=== PATIENT | male | born 1955 | race Two or more races ===

== ENCOUNTER 2017-11-24 18:59 | Emergency (ER) | payer OTHER ==
[2017-11-24 19:15] VITALS: BP 163/56; PULSE 106; TEMP 102.5; BMI 24.2
[2017-11-24] MEDS ORDERED: SODIUM CHLORIDE 1,000 ML IV STA (20:19)
[2017-11-24] MEDS ORDERED: ACETAMINOPHEN 325 MG TABLET (FP) PO ONE (20:19)
--- NOTE | 2017-11-24 20:19 | PDOC ---
History of Present Illness - General History Source: Patient Exam Limitations: No Limitations - History of Present Illness Initial Comments: 11/24/17 20:20 The patient is a 62 year old male, with no significant past medical history, who presents to the emergency department with dysuria, increased urinary frequency, nausea, and suprapubic pain for 1 day. He reportedly took a dose of pyridium to alleviate the urinary discomfort, however, reports still having discomfort on urination. The patient reports pain to his bilateral flanks and suprapubic regions. The patient reports feeling nauseous but denies vomiting. The patient denies chest pain, shortness of breath, headache and dizziness. The patient denies fever, chills, vomit, diarrhea and constipation. The patient denies urgency and hematuria. Allergies: NKDA: PCP - Dr. Hugh Lr <Salud Cox - Last Filed: 11/24/17 22:21> - General History Source: Patient <Arsh Buchanan - Last Filed: 11/24/17 22:31> - General Chief Complaint: Urinary Problem Stated Complaint: UTI Time Seen by Provider: 11/24/17 20:11 Past History <Salud Cox - Last Filed: 11/24/17 22:21> - Past Medical History COPD: No GI Disorders: Yes (diverticulitis) HTN: Yes - Suicide/Smoking/Psychosocial Hx Smoking History: Never smoked Have you smoked in the past 12 months: No Information on smoking cessation initiated: No Hx Alcohol Use: No Drug/Substance Use Hx: No <Arsh Buchanan - Last Filed: 11/24/17 22:31> - Past Medical History Allergies/Adverse Reactions: Allergies Allergy/AdvReac Type Severity Reaction Status Date / Time No Known Allergies Allergy Verified 11/24/17 21:36 Home Medications: Ambulatory Orders Doxycycline Hyclate [Vibramycin -] 100 mg PO BID #20 cap 11/24/17 Ibuprofen [Motrin -] 600 mg PO TID #30 tablet 11/24/17 Review of Systems - Review of Systems Able to Perform ROS?: Yes Comments:: 11/24/17 20:21 CONSTITUTIONAL: Absent: fever, chills, diaphoresis, generalized weakness, malaise, loss of appetite HEENT: Absent: rhinorrhea, nasal congestion, throat pain, throat swelling, difficulty swallowing, mouth swelling, ear pain, eye pain, visual Changes CARDIOVASCULAR: Absent: chest pain, syncope, palpitations, irregular heart rate, lightheadedness , peripheral edema RESPIRATORY: Absent: cough, shortness of breath, dyspnea with exertion, orthopnea, wheezing, stridor, hemoptysis GASTROINTESTINAL: (+) suprapubic pain. nausea. Absent: abdominal distension, vomiting, diarrhea , constipation, melena, hematochezia GENITOURINARY: (+) dysuria, frequency, Absent:urgency, hesitancy, hematuria, flank pain, genital pain MUSCULOSKELETAL: Absent: myalgia, arthralgia, joint swelling SKIN: Absent: rash, itching, pallor HEMATOLOGIC/IMMUNOLOGIC: Absent: easy bleeding, easy bruising, lymphadenopathy, frequent infections ENDOCRINE: Absent: unexplained weight gain, unexplained weight loss, heat intolerance, cold intolerance NEUROLOGIC: Absent: headache, focal weakness or paresthesias, dizziness, unsteady gait, seizure, mental status changes, bladder or bowel incontinence PSYCHIATRIC: Absent: anxiety, depression, suicidal or homicidal ideation, hallucinations. <Salud Cox - Last Filed: 11/24/17 22:21> *Physical Exam - Vital Signs Last Vital Signs Temp Pulse Resp BP Pulse Ox 102.5 F H 106 H 20 163/56 99 11/24/17 19:09 11/24/17 19:09 11/24/17 19:09 11/24/17 19:09 11/24/17 19:09 - Physical Exam Comments: 11/24/17 20:21 GENERAL: (+) febrile. Well developed, well nourished. Awake and alert. No acute distress. HEENT: Normocephalic, atraumatic. PERRLA, EOMI. No conjunctival pallor. Sclera are non- icteric. Moist mucous membranes. Oropharynx is clear. NECK: Supple. Full ROM. No JVD. Carotid pulses 2+ and symmetric, without bruits. No thyromegaly. No lymphadenopathy. CARDIOVASCULAR: Regular rate and rhythm. No murmurs, rubs, or gallops. Distal pulses are 2+ and symmetric. PULMONARY: No evidence of respiratory distress. Lungs clear to auscultation bilaterally. No wheezing, rales or rhonchi. ABDOMINAL: (+) suprapubic tenderness to palpation. Soft. Non-distended. No rebound or guarding. No organomegaly. Normoactive bowel sounds. MUSCULOSKELETAL Normal range of motion at all joints. No bony deformities or tenderness. No CVA tenderness. EXTREMITIES: No cyanosis. No clubbing. No edema. No calf tenderness. SKIN: Warm and dry. Normal capillary refill. No rashes. No jaundice. NEUROLOGICAL: Alert, awake, appropriate. Cranial nerves 2-12 intact. Normoreflexic in the upper and lower extremities. Normal speech. Toes are down-going bilaterally. Gait is normal without ataxia. PSYCHIATRIC: Cooperative. Good eye contact. Appropriate mood and affect. <Salud Cox - Last Filed: 11/24/17 22:21> - Vital Signs Last Vital Signs Temp Pulse Resp BP Pulse Ox 102.5 F H 106 H 20 163/56 99 11/24/17 19:09 11/24/17 19:09 11/24/17 19:09 11/24/17 19:09 11/24/17 19:09 <Arsh Buchanan - Last Filed: 11/24/17 22:31> ED Treatment Course - LABORATORY CBC & Chemistry Diagram: 11/24/17 21:20 11/24/17 21:20 - RADIOLOGY Radiograph Interpretation: EXAM#: TYPE/EXAM: RESULT: [id number] CT/SPIRAL- RENAL-STONE CT Renal stone CT (without contrast) Clinical information: evaluate for kidney stone Multiplanar imaging was performed. No intravenous or enteric contrast was administered. No urinary tract calculus or hydroureteronephrosis is identified. In comparison to a prior CT exam of 07/02/2011 note is made of mildly increased perinephric soft tissue stranding which may be on the basis of chronic or acute inflammation. Correlate clinically. The kidneys appear unremarkable in size. No obvious contour abnormality is identified. Interval development of swelling of the prostate gland is noted with associated development of stranding within the contiguous fat planes suggestive of acute prostatitis. There is also enlargement of the seminal vesicles bilaterally with adjacent soft tissue stranding which may be on the basis of associated vesiculitis. There is also mild diffuse urinary bladder wall thickening suggestive of cystitis although a component of this appearance could be due to underdistention. There is development of soft tissue stranding within the perivesical fat planes. Colonic diverticulosis is noted without evidence of acute diverticulitis. The appendix appears unremarkable. The liver, spleen, pancreas, gallbladder, and adrenal glands demonstrate no discrete noncontrast pathology. There is no aortic aneurysm. No free intraperitoneal fluid is seen. Interval development of several mildly prominent retroperitoneal lymph nodes is noted. Impression: No CT evidence of urolithiasis or hydronephrosis. In comparison to a 2011 CT exam interval development of prostate enlargement is noted with associated contiguous soft tissue stranding consistent with edema probably on the basis of acute prostatitis. Development of swelling of the seminal vesicles is also seen bilaterally with associated contiguous soft tissue stranding suggestive of acute vesiculitis. There is also probable acute cystitis. Perirectal soft tissue stranding suggestive of inflammation/infection is also visualized which may be chronic or acute in nature. Interval development of several nonspecific mildly prominent retroperitoneal lymph nodes is noted which may be on a reactive basis. Correlate with 3 month follow-up CT or MRI to document stability/resolution Reported By: Mitchel Osborn MD 11/24/171 <Salud Cox - Last Filed: 11/24/17 22:21> - LABORATORY CBC & Chemistry Diagram: 11/24/17 21:20 11/24/17 21:20 <Arsh Buchanan - Last Filed: 11/24/17 22:31> Medical Decision Making - Medical Decision Making 11/24/17 22:30 Dr. Buchanan: The scribe's documentation has been prepared under my direction and personally reviewed by me in its entirery. I confirm that the note above accurately reflects all work, treatment, procedures, and medical decision making performed by me. Pt found to have acute cystitis on CT scan. NO involvement to kidneys. Pt to follow up with urology. <Arsh Buchanan - Last Filed: 11/24/17 22:31> *DC/Admit/Observation/Transfer - Attestations Scribe Attestion: 11/24/17 20:22 Documentation prepared by Salud Cox, acting as medical chief technician for Arsh Buchanan DO. <Salud Cox - Last Filed: 11/24/17 22:21> - Discharge Dispostion Admit: No <Arsh Buchanan - Last Filed: 11/24/17 22:31> Diagnosis at time of Disposition: Acute cystitis - Discharge Dispostion Disposition: HOME Condition at time of disposition: Stable - Prescriptions Prescriptions: Doxycycline Hyclate [Vibramycin -] 100 mg PO BID #20 cap Ibuprofen [Motrin -] 600 mg PO TID #30 tablet - Referrals Referrals: Hugh Lr MD [Primary Care Provider] - - Patient Instructions Printed Discharge Instructions: DI for Acute Cystitis Additional Instructions: Please take medication as directed. Please drink plenty of fluids. follow up with your urologist in the next two for re-evaluation. Return if any problems Print Language: BRUNEIAN - Post Discharge Activity
[2017-11-24] MEDS ORDERED: KETOROLAC TROMETHAMINE 30 MG/1 ML VIAL IVPUSH ONE (20:24)
[2017-11-24 20:47] LABS: URINE APPEARANCE CLOUDY; URINE BILIRUBIN NEGATIVE (NEGATIVE); URINE BLOOD 1+ (NEGATIVE); URINE COLOR AMBER; URINE GLUCOSE (UA) 1+ (NEGATIVE); URINE KETONE TRACE (NEGATIVE); URINE NITRITE POSITIVE (NEGATIVE); URINE UROBILINOGEN 4.0 E.U/dl mg/dL (0.2-1.0)
[2017-11-24 20:48] LABS: URINE LEUK ESTERASE 2+ (NEGATIVE); URINE PROTEIN 2+ (NEGATIVE)
[2017-11-24 20:50] LABS: EPI CELLS RARE /HPF (FEW)
[2017-11-24] MEDS ORDERED: CEFTRIAXONE 1 GM/50 ML BAG ONE (21:04)
[2017-11-24 21:31] LABS: BASO % 0.1 % (0-2.0); HEMATOCRIT 30.5 % (35.4-49); HEMOGLOBIN 9.8 GM/dL (11.7-16.9); LYMPH % 6.4 % (8-40); MCH 22.7 pg (25.7-33.7); MCHC 32.1 g/dl (32.0-35.9); MEAN CELL VOLUME 70.7 fl (80-96); MEAN PLT VOLUME 6.8 fl (7.5-11.1); NEUT % 91.5 % (42.8-82.8); PLATELET COUNT 341 K/MM3 (134-434); RBC 4.32 M/mm3 (4.00-5.60); RDW 18.3 % (11.9-15.9); WHITE BLOOD COUNT 9.2 K/mm3 (4.0-10.0)
[2017-11-24 21:45] LABS: INR 1.27 (0.82-1.09); PROTHROMBIN TIME (PATIENT) 14.4 SEC (9.98-11.88)
[2017-11-24 22:08] LABS: ALBUMIN 3.3 g/dl (3.4-5.0); ANION GAP 11 (8-16); BLOOD UREA NITROGEN 11 mg/dL (7-18); CHLORIDE 90 mmol/L (98-107); CO2 26 mmol/L (21-32); CREATININE 1.3 mg/dL (0.7-1.3); GLUCOSE,RANDOM 140 mg/dL (74-106); SGOT/AST 12 U/L (15-37); SGPT/ALT 12 U/L (12-78); SODIUM 127 mmol/L (136-145); TOT PROT 7.4 g/dl (6.4-8.2)
[2017-11-24 22:09] LABS: ALK PHOS 68 U/L (45-117)
[2017-11-24] MEDS ORDERED: POTASSIUM CHLORIDE TABS 20 MEQ TABLET.ER (FP) PO ONE ×2 (22:10→22:59)
[2017-11-24] MEDS ORDERED: DOXYCYCLINE HYCLATE 100 MG CAPSULE PO ONE ×2 (22:22→22:59)
--- NOTE | 2017-11-25 10:33 | PDOC ---
Patient Follow-up (Call Back) - Post ED Follow - Up Condition at time of discharge: Stable Disposition at time of original discharge: HOME Reason for Call Back: Abnwl. Microbiology (Patient with positive blood culture I have called patient to return to ER daughter states the patient is still febrile and vomiting. I have explained to daughter the patient will need to return immediately to emergency department for further evaluation, she verbalized understanding and will bring him now.)
== END 2017-11-25 00:33 | disposition home or self-care (01) ==
LOC: JER 18:59
PROC: 3E03329 Introduction of Other Anti-infective into Peripheral Vein, Percutaneous Approach (ICD-10-PCS; principal; 2017-11-24)
PROC: 3E0333Z Introduction of Anti-inflammatory into Peripheral Vein, Percutaneous Approach (ICD-10-PCS; 2017-11-24)
DX: N30.00 Acute cystitis without hematuria (principal); R78.81 Bacteremia
CPT/HCPCS: 36415; 74176; 80053; 81003; 81015; 85025; 85610; 87040; 87086; 87186; 99282-25

== ENCOUNTER 2017-11-25 11:12 | Inpatient (IN) | payer OTHER ==
[2017-11-25] MEDS ORDERED: SODIUM CHLORIDE 0.9% 1000 ML INFUS.BAG IV STA (11:48)
[2017-11-25] MEDS ORDERED: PIPERACIL/TAZOB 3.375 GM 3.375 GM/50 ML PREMIX IVPB ONE (11:56)
--- NOTE | 2017-11-25 11:56 | PDOC ---
History of Present Illness - General History Source: Patient, Family Exam Limitations: No Limitations - History of Present Illness Initial Comments: 11/25/17 12:05 The patient is a 62 year old male, with a significant past medical history of hypertension, who presents to the emergency department for evaluation of UTI. The patient states he was seen in [place] ED yesterday for complaints of dysuria, increased urinary frequency with driplets, nausea, and suprapubic pain and reports back to the ED this morning s/p a positive blood culture report. The patient reports a recent subjective fever, 3 episodes of emesis (non bloody , non bilious), dizziness, dysuria and increased urinary frequency with driplets. The patient reports his suprapubic pain has improved since yesterday and he is now able to urinate more than he was able to yesterday. He denies any recent chills or headache. He denies any recent, diarrhea or constipation. He denies any recent chest pain or shortness of breath. He denies any recent hematuria. Allergies: NKA Primary Care Physician: Dr. Elliott <Jesus Teixeira - Last Filed: 11/25/17 14:31> <Arina Daigle - Last Filed: 11/25/17 15:18> - General Chief Complaint: Revisit, Lab Variance Stated Complaint: LAB VARIANCE Time Seen by Provider: 11/25/17 11:47 Past History <Jesus Teixeira - Last Filed: 11/25/17 14:31> - Past Medical History COPD: No GI Disorders: Yes (diverticulitis) HTN: Yes - Suicide/Smoking/Psychosocial Hx Smoking History: Never smoked Have you smoked in the past 12 months: No Hx Alcohol Use: No Drug/Substance Use Hx: No <Arina Daigle - Last Filed: 11/25/17 15:18> - Past Medical History Allergies/Adverse Reactions: Allergies Allergy/AdvReac Type Severity Reaction Status Date / Time No Known Allergies Allergy Verified 11/25/17 11:18 Home Medications: Ambulatory Orders Doxycycline Hyclate [Vibramycin -] 100 mg PO BID #20 cap 11/24/17 Ibuprofen [Motrin -] 600 mg PO TID #30 tablet 11/24/17 Review of Systems - Review of Systems Comments:: 11/25/17 12:26 GENERAL/CONSTITUTIONAL: +Fever. No chills. No weakness. HEAD, EYES, EARS, NOSE AND THROAT: No change in vision. No ear pain or discharge. No sore throat. CARDIOVASCULAR: No chest pain or shortness of breath. RESPIRATORY: No cough, wheezing, or hemoptysis. GASTROINTESTINAL: +Suprapubic pain. +Nausea. +Vomiting. No diarrhea or constipation. GENITOURINARY: +Dysuria. +Frequency. No hematuria. MUSCULOSKELETAL: No joint or muscle swelling or pain. No neck or back pain. SKIN: No rash NEUROLOGIC: +Dizziness. No headache, loss of consciousness, or change in strength/sensation. ENDOCRINE: No increased thirst. No abnormal weight change. HEMATOLOGIC/LYMPHATIC: No anemia, easy bleeding, or history of blood clots. ALLERGIC/IMMUNOLOGIC: No hives or skin allergy. <Jesus Teixeira - Last Filed: 11/25/17 14:31> *Physical Exam - Vital Signs Last Vital Signs Temp Pulse Resp BP Pulse Ox 98 F 87 19 104/61 100 11/25/17 11:18 11/25/17 11:18 11/25/17 11:18 11/25/17 11:18 11/25/17 11:18 - Physical Exam Comments: 11/25/17 12:47 GENERAL: Awake, alert, and fully oriented, in no acute distress HEAD: No signs of trauma EYES: PERRLA, EOMI, sclera anicteric, conjunctiva clear ENT: Auricles normal inspection, hearing grossly normal, nares patent, oropharynx clear without exudates. Moist mucosa NECK: Normal ROM, supple, no lymphadenopathy, JVD, or masses LUNGS: Breath sounds equal, clear to auscultation bilaterally. No wheezes, and no crackles HEART: Regular rate and rhythm, normal S1 and S2, no murmurs, rubs or gallops ABDOMEN: Soft, nontender, normoactive bowel sounds. No guarding, no rebound. No masses EXTREMITIES: Normal range of motion, no edema. No clubbing or cyanosis. No cords, erythema, or tenderness NEUROLOGICAL: Cranial nerves II through XII grossly intact. Normal speech, normal gait SKIN: Warm, Dry, normal turgor, no rashes or lesions noted <Jesus Teixeira - Last Filed: 11/25/17 14:31> - Vital Signs Last Vital Signs Temp Pulse Resp BP Pulse Ox 98 F 87 19 104/61 100 11/25/17 11:18 11/25/17 11:18 11/25/17 11:18 11/25/17 11:18 11/25/17 11:18 <Arina Daigle - Last Filed: 11/25/17 15:18> ED Treatment Course - LABORATORY CBC & Chemistry Diagram: 11/25/17 12:30 11/25/17 12:30 <Jesus Teixeira - Last Filed: 11/25/17 14:31> - LABORATORY CBC & Chemistry Diagram: 11/25/17 12:30 11/25/17 12:30 <Arina Daigle - Last Filed: 11/25/17 15:18> Medical Decision Making - Medical Decision Making 11/25/17 13:[address] Brooks at 1:30 pm. Pending call back. Second page sent to Dr. Brooks at 2:20 pm. Pending call back. <Jesus Teixeira - Last Filed: 11/25/17 14:31> - Medical Decision Making 11/25/17 13:24 Pt presents to the ED after recalled for gram negative rods in his blood cultures. Seen in the ED yesterday, had prostatitis and cystitis on CT, discharged home with doxycycline. Today, has continued vomiting and fever and dysuria, but is otherwise asymptomatic. Will start zosyn and Iv hydration and admit to medicine for sepsis. 11/25/17 13:55 Lactate is 6.6. Case discussed with ICU attending, who states that as long as patient is hemodyamically stable and lactate is clearing, patient can be admitted to floor. I went to reassess the patient and found his blood pressure to be 70/50. Patient is mentating and at this point has no complaints except for mild lightheadness. At this point, the patient has only recieved 500 cc IVF. Placed a second IV line, started another liter of NS, and will reassess patient. Repeat BP 87/50 after second line placed. Will upgrade to ICU if BP does not improve or if lactate is not clearing. 11/25/17 15:[address] Pitts, who has come to the ED to evaluate the patient. The patient's blood pressure has improved to 130/60 and the patient contines to mentate well with minimal complaints. Dr. Pitts feels that since the blood pressure is improving, the patient can be safely monitored on telemetry. Will continue IV hydration and admit to Telemetry. <Arina Daigle - Last Filed: 11/25/17 15:18> *DC/Admit/Observation/Transfer - Attestations Scribe Attestion: 11/25/17 12:58 Documentation prepared by Jesus Teixeira, acting as ophthalmic medical technician for Arina Daigle MD. <Jesus Teixeira - Last Filed: 11/25/17 14:31> - Discharge Dispostion Admit: Yes <Arina Daigle - Last Filed: 11/25/17 15:18> Diagnosis at time of Disposition: Prostatitis Qualifiers: Prostatitis type: acute Qualified Code(s): N41.0 - Acute prostatitis Sepsis Qualifiers: Sepsis type: sepsis due to unspecified organism Qualified Code(s): A41.9 - Sepsis, unspecified organism - Discharge Dispostion Condition at time of disposition: Good
[2017-11-25 12:47] LABS: VENOUS PC02 52.5 mmHg (38-52); VENOUS PH 7.29 (7.32-7.42)
[2017-11-25 12:48] LABS: VENOUS PO2 25.8 mmHg (28-48)
[2017-11-25 12:59] LABS: BASO % 0.1 % (0-2.0); EOS % 0.2 % (0-4.5); HEMATOCRIT 30.1 % (35.4-49); HEMOGLOBIN 9.4 GM/dL (11.7-16.9); LYMPH % 3.4 % (8-40); MCH 22.3 pg (25.7-33.7); MCHC 31.1 g/dl (32.0-35.9); MEAN CELL VOLUME 71.8 fl (80-96); MEAN PLT VOLUME 7.2 fl (7.5-11.1); MONO % 4.9 % (3.8-10.2); NEUT % 91.4 % (42.8-82.8); PLATELET COUNT 285 K/MM3 (134-434); RBC 4.19 M/mm3 (4.00-5.60); RDW 18.6 % (11.9-15.9); WHITE BLOOD COUNT 19.6 K/mm3 (4.0-10.0)
[2017-11-25 13:11] LABS: INR 1.43 (0.82-1.09); PROTHROMBIN TIME (PATIENT) 16.2 SEC (9.98-11.88)
[2017-11-25 13:12] LABS: ANION GAP 13 (8-16); BILIRUBIN,TOTAL 0.6 mg/dL (0.2-1.0); BLOOD UREA NITROGEN 19 mg/dL (7-18); CALCIUM 7.6 mg/dL (8.5-10.1); CHLORIDE 90 mmol/L (98-107); CO2 25 mmol/L (21-32); CREATININE 1.6 mg/dL (0.7-1.3); GLUCOSE,RANDOM 138 mg/dL (74-106); POTASSIUM 3.6 mmol/L (3.5-5.1); SGOT/AST 16 U/L (15-37); SGPT/ALT 12 U/L (12-78); SODIUM 128 mmol/L (136-145); TOT PROT 6.9 g/dl (6.4-8.2)
[2017-11-25 13:13] LABS: ACTIVATED PTT 29.8 SECONDS (26.9-34.4)
[2017-11-25 13:14] LABS: ALK PHOS 65 U/L (45-117)
[2017-11-25] MEDS ORDERED: PIPERACILLIN/TAZOB 3.375 GM 3.375 GM/50 ML BAG IVPB ONE (13:33)
[2017-11-25] MEDS ORDERED: SODIUM CHLORIDE 1,000 ML IV STA (13:42)
[2017-11-25] MEDS ORDERED: PIPERACILLIN/TAZOB 3.375 GM 3.375 GM in DEXTROSE 5%-WATER - 50 ML IVPB ONE (13:45)
[2017-11-25] MEDS ORDERED: TAZOB IVPB ONE (13:45)
[2017-11-25] MEDS ORDERED: PIPERACILLIN IVPB ONE (13:45)
--- NOTE | 2017-11-25 14:27 | PN ---
Progress Note (short form) - Note Progress Note: ID Consult dictated Gram Negative Sepsis/ septic shock secondary to source Pending c/s empiric meropenem
[2017-11-25] MEDS ORDERED: MEROPENEM 1 GM in DEXTROSE 5%-WATER - 100 ML IVPB SCH (14:30)
[2017-11-25] MEDS: MEROPENEM 1 GM PUSH 1 GM/20 ML DISP.SYRIN IVPUSH SCH ×2 (15:00→20:27)
--- NOTE | 2017-11-25 15:09 | CONSULT ---
Consultation: REQUESTING PROVIDER: ED physician CONSULT REQUEST: We have been asked to medically evaluate whether patient needs ICU monitoring due to septic shock. HISTORY OF PRESENT ILLNESS: Patient is a 62 [id number] came in to [facility] ED yesterday (11/24/2017) for dysuria, was given Doxycyline 100mg PO BID and sent home. Today, he was called back to [facility] ED for a positive blood culture that was done yesterday. As per the patient, he was apparently well until 3 days back, until he had B/L flank pain, dysuria, increased frequency of urination. No hematuria, no urinary incontinence. No h/o UTI in the past or kidney stones in the past. Denies fever , chills, rigors, sweating, chest pain, sob, palpitation, abdominal pain, nausea or vomiting. Bowel bladder habit normal. Last bowel movement was today. Sleep/Appetite disturbed since illness. Past Medical History: Hypertension, Asthma, Iron def anemia Allergies: NKDA Medication: Montelukast, Atenolol/Chlorthalidone 50-25 mg, Losartan 50mg, Ferrous sulphate (but pt is not taking it), Ranitidine, Senna REVIEW OF SYSTEMS: CONSTITUTIONAL: Present: fever, Absent: chills, diaphoresis, generalized weakness, malaise, loss of appetite, weight change HEENT: Absent: rhinorrhea, nasal congestion, throat pain, throat swelling, difficulty swallowing, mouth swelling, ear pain, eye pain, visual changes CARDIOVASCULAR: Absent: chest pain, syncope, palpitations, irregular heart rate, lightheadedness , peripheral edema RESPIRATORY: Absent: cough, shortness of breath, dyspnea with exertion, orthopnea, wheezing, stridor, hemoptysis GASTROINTESTINAL: Absent: abdominal pain, abdominal distension, nausea, vomiting, diarrhea, constipation, melena, hematochezia GENITOURINARY: Present: dysuria, frequency, urgency, hesitancy,flank pain Absent: hematuria, genital pain MUSCULOSKELETAL: Absent: myalgia, arthralgia, joint swelling, back pain, neck pain SKIN: Absent: rash, itching, pallor HEMATOLOGIC/IMMUNOLOGIC: Absent: easy bleeding, easy bruising, lymphadenopathy, frequent infections ENDOCRINE: Absent: unexplained weight gain, unexplained weight loss, heat intolerance, cold intolerance NEUROLOGIC: Absent: headache, focal weakness or paresthesias, dizziness, unsteady gait, seizure, mental status changes, bladder or bowel incontinence PSYCHIATRIC: Absent: anxiety, depression, suicidal or homicidal ideation, hallucinations. PHYSICAL EXAMINATION Vital Signs - 24 hr 11/25/17 11:18 Temperature 98 F Pulse Rate 87 Respiratory 19 Rate Blood Pressure 104/61 O2 Sat by Pulse 100 Oximetry (%) GENERAL: Patient is sitting comfortably in a bed, Awake, alert, and fully oriented, in no acute distress. HEAD: Normal with no signs of trauma. EYES: Pupils equal, round and reactive to light, extraocular movements intact, sclera anicteric, conjunctiva clear. No lid lag. EARS, NOSE, THROAT: Ears normal, nares patent, oropharynx clear without exudates. Moist mucous membranes. NECK: Normal range of motion, supple without lymphadenopathy, JVD, or masses. LUNGS: Breath sounds equal, clear to auscultation bilaterally. No wheezes, and no crackles. No accessory muscle use. HEART: Regular rate and rhythm, normal S1 and S2 without murmur, rub or gallop. ABDOMEN: Soft, tenderness of suprapubic area, not distended, normoactive bowel sounds, no guarding, no rebound, no masses. No hepatomegaly or splenomegaly. MUSCULOSKELETAL: Normal range of motion at all joints. No bony deformities or tenderness. No CVA tenderness. UPPER EXTREMITIES: 2+ pulses, warm, well-perfused. No cyanosis. No clubbing. Cap refill <2 seconds. No peripheral edema. LOWER EXTREMITIES: 2+ pulses, warm, well-perfused. No calf tenderness. No peripheral edema. NEUROLOGICAL: No facial droop, Normal speech. Normal gait. PSYCHIATRIC: Cooperative. Good eye contact. Appropriate mood and affect. SKIN: Warm, dry, normal turgor, no rashes or lesions noted. Laboratory Results - last 24 hr 11/25/17 11/25/17 11/25/17 12:30 12:30 12:30 WBC 19.6 H D RBC 4.19 Hgb 9.4 L Hct 30.1 L MCV 71.8 L MCH 22.3 L MCHC 31.1 L RDW 18.6 H Plt Count 285 MPV 7.2 L Neutrophils % 91.4 H Lymphocytes % 3.4 L D Monocytes % 4.9 D Eosinophils % 0.2 D Basophils % 0.1 PT with INR 16.20 H INR 1.43 H PTT (Actin FS) 29.8 VBG pH 7.29 L POC VBG pCO2 52.5 H POC VBG pO2 25.8 L Mixed VBG HCO3 24.6 Sodium Potassium Chloride Carbon Dioxide Anion Gap BUN Creatinine Creat Clearance w eGFR Random Glucose Lactic Acid Calcium Total Bilirubin AST ALT Alkaline Phosphatase Creatine Kinase Troponin I Total Protein Albumin Blood Type Antibody Screen 11/25/17 11/25/17 11/25/17 12:30 12:30 12:30 WBC RBC Hgb Hct MCV MCH MCHC RDW Plt Count MPV Neutrophils % Lymphocytes % Monocytes % Eosinophils % Basophils % PT with INR INR PTT (Actin FS) VBG pH POC VBG pCO2 POC VBG pO2 Mixed VBG HCO3 Sodium 128 L Potassium 3.6 Chloride 90 L Carbon Dioxide 25 Anion Gap 13 BUN 19 H D Creatinine 1.6 H D Creat Clearance w eGFR 44.02 Random Glucose 138 H Lactic Acid 6.6 H* Calcium 7.6 L Total Bilirubin 0.6 D AST 16 D ALT 12 Alkaline Phosphatase 65 Creatine Kinase 149 Troponin I < 0.02 Total Protein 6.9 Albumin 3.0 L Blood Type O POSITIVE Antibody Screen Negative Active Medications Generic Name Dose Route Start Last Admin Trade Name Freq PRN Reason Stop Dose Admin Meropenem 1 gm in 20 mls @ 240 mls/hr 11/25/17 15:00 Merrem (Restricted To Id) - IVPUSH Q8H-IV BROOKE ASSESSMENT/PLAN: Patient is a 62 [id number] came in to [facility] ED yesterday (11/24/2017) for dysuria, was given Doxycyline 100mg PO BID and sent home, was called back for positive blood culture, was found to have bacteremia secondary to UTI/ Prostatitis. # Early sepsis likely secondary to bacteremia due to UTI/Prostatis qSofa score 0, blood pressure improved after 3 L of IV fluids, 4th bag running At this time, patient's BP improved after IV hydration, hemodynamically stable, no indication for ICU admission IV NS @ 150mls.hr ID consult was placed-IV Meropenam started Vitals Q4H Admit to Tele, continuous cardiac monitoring Would recommend : repeat imaging in few days if clinical condition doesn't improve to r/o abscess. Please call for any change in clinical condition or questions. # Hypertension Hold home meds. # Asthma-not in exacerbation Case discussed with Dr. Rush and KARLI Cortez. Visit type - Emergency Visit Emergency Visit: Yes ED Registration Date: 11/25/17 Care time: The patient presented to the Emergency Department on the above date and was hospitalized for further evaluation of their emergent condition. - New Patient This patient is new to me today: Yes Date on this admission: 11/25/17 - Critical Care Critical Care patient: No
[2017-11-25] MEDS ORDERED: SODIUM CHLORIDE 1,000 ML IV SCH (15:15)
--- NOTE | 2017-11-25 15:47 | CONS ---
INFECTIOUS DISEASE CONSULTATION DATE OF CONSULTATION: 11/25/2017 REASON FOR CONSULTATION: The patient is a 62-year-old male who is evaluated for septic shock. HISTORY OF PRESENT ILLNESS: He had developed symptoms of urinary tract infection including dysuria, urinary frequency, urgency, nausea, and suprapubic pain. According to the notes, he took Pyridium without improvement in his symptoms. He was seen by his primary care provider and was prescribed an antibiotic. He was unable to obtain the antibiotic. Symptoms worsened, prompting him to report to the emergency room on November 24, 2017. He was evaluated and discharged home. Lab now reports positive blood cultures for gram-negative rods. The patient continues to complain of dysuria, urinary frequency, and urgency; lower abdominal pain. In the emergency room, his temperature was 102.5 and white blood cell count 19.6. Lactic acid level 6.6. His course has been complicated by hypotension. In the emergency room, his blood pressure dropped to 70/50, and he was given IV fluids with improvement in his blood pressure. Patient states he has been followed by urologist in the past for an elevated PSA. He had a prostate biopsy 2 years ago, which he reports was normal. No recent manipulation. PAST MEDICAL HISTORY: As above. ALLERGIES: No known allergies. SOCIAL HISTORY: Resides at home with his significant other. No tobacco or alcohol use history. SYSTEMS REVIEW: Neurologic: No loss of consciousness, seizure activity, or focal weakness. Cardiac: Negative chest pain or palpitations. Respiratory: Negative cough or sputum production. Gastrointestinal: Positive for nausea. No vomiting or diarrhea. Genitourinary: As per HPI. LABORATORY DATA: White count 19.6, hematocrit 30.1, platelet count 285. BUN 13, creatinine 1.6. Liver enzymes normal. Urinalysis: White cells 1194. Lactic acid 6.6. CAT scan of the abdomen and pelvis performed November 24, shows prostate enlargement with contiguous soft tissue stranding consistent with edema, likely on the basis of acute prostatitis; swelling of the seminal vesicles bilaterally with contiguous soft tissue stranding. There was perinephric stranding as well as diffuse urinary bladder wall thickening suggestive of cystitis. PHYSICAL EXAMINATION: General: He is ill appearing. He is lying supine on the stretcher in the emergency room. He appears weak. He is in no acute respiratory distress. Vital Signs: Temperature 102.5; blood pressure 104/61; pulse 87, regular; respirations 20 per minute. HEENT: Sclerae are anicteric. Heart: Sounds S1, S2. Lungs: Clear. Abdomen: Distended, tympanitic. Positive suprapubic tenderness. No mass, rebound, or rigidity. Extremities: Negative for edema. IMPRESSION: 1. Gram-negative bacteremia/sepsis secondary to genitourinary focus. 2. Urinary tract infection. 3. Acute prostatitis. 4. Possible acute pyelonephritis. 5. Lactic acidosis. Clinical presentation consistent with septic shock secondary to gram-negative sepsis from urinary tract infection. Continue IV fluid resuscitation, broad-spectrum antibiotic coverage for gram-negative urinary tract pathogens including possible ESBL with meropenem 1 g IV piggyback every 8 hours. Further recommendations pending cultures. Case discussed with patient's present at the time of the examination. Thank you for the kind referral. SATHISH QUINTERO M.D. [id number]
--- NOTE | 2017-11-25 15:54 | HP ---
CHIEF COMPLAINT: Abdominal pain, vomiting, chills PCP: Jean Elliott HISTORY OF PRESENT ILLNESS: This is a 62 year old male with PMHx of HTN who presented to the ED with abdominal pain, vomiting, chills, and dysuria. The patient reports that on Wednesday 11/22 he began to have dysuria. He states he went to his PMD yesterday and was told an Rx for abx was sent to pharmacy. The patient was unable to pick it up from the pharmacy and came to [facility] ED. The patient had a fever and was diagnosed with prostatitis and acute cystitis and dishcarged on Doxycycline. The patient was then called back to the ED today because blood cultures from yesterday were positive. He reports increased lower abdominal pain today. He reports still with dysuria and urgency, with hesitancy. The patient states he had one episode of non-bloody emesis this AM. He denies any chest pain, palpitations, headache, dizziness, syncope, diarrhea, shortness of breath. The patient also denies any hematuria. ER course was notable for: (1) WBC 19.6 (2) Lactic acid 6.6->3.4 after 3L NS (3) Cr 1.6 (4) Hypotension, 76/57->113/73 after 4L fluid Recent Travel: denies PAST MEDICAL HISTORY: HTN PAST SURGICAL HISTORY: denies Social History: Smoking: denies Alcohol: denies Drugs: denies Family History: Allergies No Known Allergies Allergy (Verified 11/25/17 11:18) HOME MEDICATIONS: Home Medications Medication Instructions Recorded Doxycycline Hyclate [Vibramycin -] 100 mg PO BID #20 cap 11/24/17 Ibuprofen [Motrin -] 600 mg PO TID #30 tablet 11/24/17 REVIEW OF SYSTEMS CONSTITUTIONAL: fever, chill since this AM. Diaphoresis yesterday. Absent: generalized weakness, malaise, loss of appetite, weight change HEENT: Absent: rhinorrhea, nasal congestion, throat pain, throat swelling, difficulty swallowing, mouth swelling, ear pain, eye pain, visual changes CARDIOVASCULAR: Absent: chest pain, syncope, palpitations, irregular heart rate , lightheadedness, peripheral edema RESPIRATORY: Absent: cough, shortness of breath, dyspnea with exertion, orthopnea, wheezing, stridor, hemoptysis GASTROINTESTINAL: One episode of vomiting this AM. Absent: abdominal pain, abdominal distension, diarrhea, constipation, melena, hematochezia GENITOURINARY: Dysuria, urgency, frequency that began on Wednesday. Absent: hematuria, flank pain, genital pain MUSCULOSKELETAL: Absent: myalgia, arthralgia, joint swelling, back pain, neck pain SKIN: Absent: rash, itching, pallor HEMATOLOGIC/IMMUNOLOGIC: Absent: easy bleeding, easy bruising, lymphadenopathy, frequent infections ENDOCRINE:Absent: unexplained weight gain, unexplained weight loss, heat intolerance, cold intolerance NEUROLOGIC: Absent: headache, focal weakness or paresthesias, dizziness, unsteady gait, seizure, mental status changes, bladder or bowel incontinence PSYCHIATRIC: Absent: anxiety, depression, suicidal or homicidal ideation, hallucinations. PHYSICAL EXAMINATION Vital Signs - 24 hr 11/25/17 11:18 Temperature 98 F Pulse Rate 87 Respiratory 19 Rate Blood Pressure 104/61 O2 Sat by Pulse 100 Oximetry (%) GENERAL: Awake, alert, and fully oriented, in no acute distress. HEAD: Normal with no signs of trauma. EYES: Pupils equal, round and reactive to light, extraocular movements intact, sclera anicteric, conjunctiva clear. No lid lag. EARS, NOSE, THROAT: Ears normal, nares patent, oropharynx clear without exudates. Moist mucous membranes. NECK: Normal range of motion, supple without lymphadenopathy, JVD, or masses. LUNGS: Breath sounds equal, clear to auscultation bilaterally. No wheezes, and no crackles. No accessory muscle use. HEART: Regular rate and rhythm, normal S1 and S2 without murmur, rub or gallop. ABDOMEN: Mildly distended. Diffuse lower abdominal tenderness. Soft, normoactive bowel sounds, no guarding, no rebound, no masses. MUSCULOSKELETAL: Normal range of motion at all joints. No bony deformities or tenderness. No CVA tenderness. UPPER EXTREMITIES: 2+ pulses, warm, well-perfused. No cyanosis. No clubbing. No peripheral edema. LOWER EXTREMITIES: 2+ pulses, warm, well-perfused. No calf tenderness. No peripheral edema. NEUROLOGICAL: Cranial nerves II-XII intact. Normal speech. Gait not observed PSYCHIATRIC: Cooperative. Good eye contact. Appropriate mood and affect. SKIN: Warm, dry, normal turgor, no rashes or lesions noted, normal capillary refill. Laboratory Results - last 24 hr 11/25/17 11/25/1711/25/18 12:30 12:30 12:30 WBC 19.6 H D RBC 4.19 Hgb 9.4 L Hct 30.1 L MCV 71.8 L MCH 22.3 L MCHC 31.1 L RDW 18.6 H Plt Count 285 MPV 7.2 L Neutrophils % 91.4 H Lymphocytes % 3.4 L D Monocytes % 4.9 D Eosinophils % 0.2 D Basophils % 0.1 PT with INR 16.20 H INR 1.43 H PTT (Actin FS) 29.8 VBG pH 7.29 L POC VBG pCO2 52.5 H POC VBG pO2 25.8 L Mixed VBG HCO3 24.6 Sodium Potassium Chloride Carbon Dioxide Anion Gap BUN Creatinine Creat Clearance w eGFR Random Glucose Lactic Acid Calcium Total Bilirubin AST ALT Alkaline Phosphatase Creatine Kinase Troponin I Total Protein Albumin Blood Type Antibody Screen 11/25/17 11/25/17 11/25/17 12:30 12:30 12:30 WBC RBC Hgb Hct MCV MCH MCHC RDW Plt Count MPV Neutrophils % Lymphocytes % Monocytes % Eosinophils % Basophils % PT with INR INR PTT (Actin FS) VBG pH POC VBG pCO2 POC VBG pO2 Mixed VBG HCO3 Sodium 128 L Potassium 3.6 Chloride 90 L Carbon Dioxide 25 Anion Gap 13 BUN 19 H D Creatinine 1.6 H D Creat Clearance w eGFR 44.02 Random Glucose 138 H Lactic Acid 6.6 H* Calcium 7.6 L Total Bilirubin 0.6 D AST 16 D ALT 12 Alkaline Phosphatase 65 Creatine Kinase 149 Troponin I < 0.02 Total Protein 6.9 Albumin 3.0 L Blood Type O POSITIVE Antibody Screen Negative 11/25/17 14:35 WBC RBC Hgb Hct MCV MCH MCHC RDW Plt Count MPV Neutrophils % Lymphocytes % Monocytes % Eosinophils % Basophils % PT with INR INR PTT (Actin FS) VBG pH POC VBG pCO2 POC VBG pO2 Mixed VBG HCO3 Sodium Potassium Chloride Carbon Dioxide Anion Gap BUN Creatinine Creat Clearance w eGFR Random Glucose Lactic Acid 3.4 H* Calcium Total Bilirubin AST ALT Alkaline Phosphatase Creatine Kinase Troponin I Total Protein Albumin Blood Type Antibody Screen Assessment: This is a 62 year old male with PMHx of HTN who presented to the ED with abdominal pain, vomiting, chills, and dysuria. Plan: 1) Severe sepsis 2/2 gram negative bacteremia - Likely from source - WBC 19.6 - Hypotension responded to IV fluids: 73/57->113/73 after 4L NS - Continue IV fluids - Lactic acidosis, continue to trend - Continue empiric Meropenem - Follow blood cultures - Appreciate ID consult - Appreciate critical care consult 2) Acute urinary retention - Bladder scan with 791cc - Insert dodson catheter 3) NELY - F/u kidney bladder ultrasound - Bladder scan at bedside with 600cc residual. Dodson catheter placed with 450cc output - Continue to trend 4) Hyponatremia - F/u repeat BMP to trend sodium level - F/u nephrology consult 2) Hx of HTN - Hold all anti-hypertensives 2/2 severe hypotension 3) F/E/N: - Regular diet - Monitor electrolytes 4) Prophylaxis: - OOB ambulating - Heparin 5,000u sq tid 5) Dispo: - Requires continued inpatient care CODE STATUS: FULL CODE Visit type - Emergency Visit Emergency Visit: Yes ED Registration Date: 11/25/17 Care time: The patient presented to the Emergency Department on the above date and was hospitalized for further evaluation of their emergent condition. - New Patient This patient is new to me today: Yes Date on this admission: 11/29/17 - Critical Care Critical Care patient: No Hospitalist Screening - Colonoscopy Questionnaire Colonoscopy Questionnaire: Colonoscopy Questionnaire - Patient: 50 - 75 years old and never had a screening colonoscopy: Unknown History of colon or rectal polyps, or CA: Unknown History of IBD, Crohn's disease or UC: Unknown History of abdominal radiation therapy as a child: Unknown - Relative: 1 with colon or rectal CA, or polyps at age 60 or younger: Unknown Colon or rectal CA diagnosed at age 45 or younger: Unknown Multiple relatives with colon or rectal CA: Unknown - Outcome: Screening Result: Negative Screen
[2017-11-25] MEDS ORDERED: HEPARIN NA (PORCINE) 5,000 UNITS/ML 1ML VIAL IVPUSH PRN ×2 (17:17)
[2017-11-25] MEDS ORDERED: HEPARIN - 25,000 UNIT in SODIUM CHLORIDE 495 ML IV SCH (17:30)
[2017-11-25 19:26] LABS: URINE APPEARANCE CLEAR; URINE BILIRUBIN NEGATIVE (NEGATIVE); URINE BLOOD 2+ (NEGATIVE); URINE COLOR AMBER; URINE GLUCOSE (UA) NEGATIVE (NEGATIVE); URINE KETONE NEGATIVE (NEGATIVE); URINE NITRITE POSITIVE (NEGATIVE); URINE PROTEIN NEGATIVE (NEGATIVE); URINE UROBILINOGEN NEGATIVE mg/dL (0.2-1.0)
[2017-11-25 19:27] LABS: URINE LEUK ESTERASE 2+ (NEGATIVE)
[2017-11-25 19:28] LABS: URINE MUCUS RARE
--- NOTE | 2017-11-25 19:38 | PN ---
Progress Note (short form) - Note Progress Note: ICU Evening team re-evaluating patient Patient seen at bedside remains hemodynamically stable AAOx3 Patient diuresing well after 4 liters IVF but bladder scan showed 500ml post void residual Lorenzana catheter inserted and 450ml of urine drained Patient feels well no complaints Vital signs during evaluation: Laying Down-129/76 HR 96 RR 24 Sat 98% on room air Standing up BP 141/74 HR 100 RRR S1 S2 CTAB ABD soft non tender slightly distended no edema global muscle strength 5/5 normal gait patient does not meet criteria for ICU care patient still ok to go to telemetry for monitoring Thank you for this consultative opportunity
[2017-11-25 22:02] LABS: ANION GAP 7 (8-16); BLOOD UREA NITROGEN 16 mg/dL (7-18); CHLORIDE 105 mmol/L (98-107); CO2 25 mmol/L (21-32); CREATININE 1.2 mg/dL (0.7-1.3); GLUCOSE,RANDOM 125 mg/dL (74-106); SODIUM 137 mmol/L (136-145)
[2017-11-25 22:09] LABS: CALCIUM 6.6 mg/dL (8.5-10.1); POTASSIUM 2.9 mmol/L (3.5-5.1)
[2017-11-25 22:31] VITALS: BMI 25.9
[2017-11-25] MEDS ORDERED: KCL 10 MEQ IVPB 10 MEQ/100 ML INFUS.BAG IVPB SCH (22:45)
[2017-11-25] MEDS ORDERED: POTASSIUM CHLORIDE 10 MEQ in SODIUM CHLORIDE 100 ML IVPB SCH (23:00)
[2017-11-25] MEDS ORDERED: POTASSIUM CHLORIDE 30 MEQ in SODIUM CHLORIDE 300 ML IVPB ONE (23:00)
[2017-11-25] MEDS: POTASSIUM CHLORIDE 10 MEQ in SODIUM CHLORIDE 100 ML IVPB SCH (23:18)
[2017-11-25] MEDS: HEPARIN NA (PORCINE) 5,000 UNITS/ML 1ML VIAL SQ SCH (23:21)
[2017-11-25] MEDS: ACETAMINOPHEN 325 MG TABLET (FP) PO PRN (23:21)
[2017-11-26] MEDS: POTASSIUM CHLORIDE 10 MEQ in SODIUM CHLORIDE 100 ML IVPB SCH ×2 (00:21→01:51)
[2017-11-26] MEDS ORDERED: KCL 10 MEQ IVPB 10 MEQ/100 ML INFUS.BAG IVPB SCH (00:45)
[2017-11-26] MEDS: MEROPENEM 1 GM PUSH 1 GM/20 ML DISP.SYRIN IVPUSH SCH ×3 (02:55→17:58)
[2017-11-26] MEDS: HEPARIN NA (PORCINE) 5,000 UNITS/ML 1ML VIAL SQ SCH ×3 (06:39→22:33)
[2017-11-26 07:25] LABS: ALBUMIN 2.2 g/dl (3.4-5.0); ANION GAP 11 (8-16); BLOOD UREA NITROGEN 14 mg/dL (7-18); CALCIUM 7.6 mg/dL (8.5-10.1); CHLORIDE 105 mmol/L (98-107); CO2 23 mmol/L (21-32); GLUCOSE,RANDOM 121 mg/dL (74-106); MAGNESIUM 1.9 mg/dL (1.8-2.4); POTASSIUM 3.5 mmol/L (3.5-5.1); SGOT/AST 15 U/L (15-37); SGPT/ALT 13 U/L (12-78); SODIUM 139 mmol/L (136-145)
[2017-11-26 07:28] LABS: ALK PHOS 57 U/L (45-117); BILIRUBIN,TOTAL 0.7 mg/dL (0.2-1.0); TOT PROT 5.6 g/dl (6.4-8.2)
[2017-11-26 07:44] LABS: HEMOGLOBIN 9.1 GM/dL (11.7-16.9); MCH 22.4 pg (25.7-33.7); MCHC 31.3 g/dl (32.0-35.9); MEAN CELL VOLUME 71.3 fl (80-96); MEAN PLT VOLUME 7.7 fl (7.5-11.1); PLATELET COUNT 233 K/MM3 (134-434); RBC 4.07 M/mm3 (4.00-5.60); RDW 18.7 % (11.9-15.9); WHITE BLOOD COUNT 13.8 K/mm3 (4.0-10.0)
--- NOTE | 2017-11-26 07:54 | CONSULT ---
Consult - text type - Consultation Consultation Note: Renal Consult for NELY and electrolyte abnormalities This is a 62 year old gentleman with PMhx of Hypertension, remote hx of BPH ( was on flomax previosuly) who presented to the ED with UTI symptoms and found to have + blood culture with NELY and hypocalcemia. Pt denies any history of CKD , Kidney stones. pt is on ARB and thiazide diuretic at home. Denies any flank pain or hematuria. No N/V/D. No NSAID use. No contrast exposure. making urine. Dodson placed s/p admission for urinary retention. No CP, SOB. BP stable. PMHx: as above Allergies: NKDA Family Hx: NC Social Hx: No T/A/D ROS: as per HPI, all other pertinent ros negative Home Medications Medication Instructions Recorded NK [No Known Home Medication] 11/25/17 Vital Signs Temperature 101.3 F H 11/26/17 07:31 Pulse Rate 90 11/26/17 07:31 Respiratory Rate 20 11/26/17 07:31 Blood Pressure 117/70 11/26/17 07:31 O2 Sat by Pulse Oximetry (%) 99 11/25/17 22:13 Intake & Output 11/23/17 11/24/17 11/25/17 11/26/17 23:59 23:59 23:59 23:59 Intake Total 5450 2050 Output Total 2700 1400 Balance 2750 650 Weight 72.745 kg NAD awake and alert neck supple, No JVD, MMM RRR, No M/R CTA soft NT/ND No LE edema CBC, BMP 11/26/17 06:30 Current Medications Acetaminophen (Tylenol -) 650 mg PO Q6H PRN PRN Reason: fever Last Admin: 11/25/17 23:21 Dose: 650 mg Heparin Sodium (Porcine) (Heparin -) 5,000 unit SQ TID BROOKE Last Admin: 11/26/17 06:39 Dose: 5,000 unit Meropenem (Merrem (Restricted To Id) -) 1 gm in 20 mls @ 240 mls/hr IVPUSH Q8H- IV BROOKE Last Admin: 11/26/17 02:55 Dose: 240 mls/hr Sodium Chloride (Normal Saline -) 1,000 mls @ 150 mls/hr IV ASDIR BROOKE Last Admin: 11/25/17 15:45 Dose: 150 mls/hr 62 year old gentleman with PMhx of Hypertension, remote hx of BPH (was on flomax previosuly) who presented to the ED with UTI symptoms and found to have + blood culture with NELY and hypocalcemia. #Acute Kidney Injury in setting of Bacteremia/UTI with ARB/Diuretics Renal function appears improved at this time s/p IVF and dodson insertion would continue to hold ARB/HCTZ at this time continue IVF, can decrease rate if BP remains stable maintain MAP > 65 avoid nephrotoxins no indication for DIN[employer] SLATE #Lactic acidosis secondary to sepsis/bacteremia continue IVF Trend until it normalizes #Hypocalcemia Corrected Ca is now within normal limits unclear why it was low yesterday pt did not get any calcium supplementation as per DEC Trend Ca, Phos #UTI/Bacteremia pt growing gram negative bactermiea continue meropenum #Urinary retention from prostate enlargement due to prostatitis continue Dodson for now consider trial of void in 24 hours Thank you Will follow Ramez Chicas DO
--- NOTE | 2017-11-26 08:32 | PN ---
Progress Note, Physician Chief Complaint: ID Meropenem day 1 therapy Complains of headaches and febrile Alert NAD - Current Medication List Current Medications: Active Medications Acetaminophen (Tylenol -) 650 mg PO Q6H PRN PRN Reason: fever Last Admin: 11/25/17 23:21 Dose: 650 mg Heparin Sodium (Porcine) (Heparin -) 5,000 unit SQ TID BROOKE Last Admin: 11/26/17 06:39 Dose: 5,000 unit Meropenem (Merrem (Restricted To Id) -) 1 gm in 20 mls @ 240 mls/hr IVPUSH Q8H- IV BROOKE Last Admin: 11/26/17 02:55 Dose: 240 mls/hr Sodium Chloride (Normal Saline -) 1,000 mls @ 150 mls/hr IV ASDIR BROOKE Last Admin: 11/25/17 15:45 Dose: 150 mls/hr - Objective Vital Signs: Vital Signs Temperature 101.3 F H 11/26/17 07:31 Pulse Rate 90 11/26/17 07:31 Respiratory Rate 20 11/26/17 07:31 Blood Pressure 117/70 11/26/17 07:31 O2 Sat by Pulse Oximetry (%) 99 11/25/17 22:13 Constitutional: Yes: Well Nourished, No Distress HENT: Yes: WNL, Atraumatic Neck: Yes: WNL, Supple. No: Decreased ROM Cardiovascular: Yes: Tachycardia, S1, S2. No: Murmur Respiratory: Yes: WNL, Regular, CTA Bilaterally, Diminished. No: Poor Air Entry , Rales Gastrointestinal: Yes: WNL, Normal Bowel Sounds, Soft, Tenderness, Other ( Tenderness RLQ area). No: Tenderness, Rebound Extremities: No: Cold, Cool, Cyanosis Edema: No Labs: CBC, BMP 11/26/17 06:30 11/26/17 06:30 INR, PTT INR 1.43 (0.82-1.09) H 11/25/17 12:30 Assessment/Plan Microbiology 11/24/17 22:20 Blood - Peripheral Venous Blood Culture - Preliminary Lactose Fermenting Neg Bacilli 11/24/17 22:20 Blood - Peripheral Venous Blood Culture - Preliminary Lactose Fermenting Neg Bacilli Laboratory Tests 11/25/17 11/25/17 11/25/17 12:30 14:35 14:55 WBC 19.6 H D Hgb Hct Plt Count BUN Creatinine Creat Clearance w eGFR Lactic Acid 3.4 H* Total Bilirubin AST ALT Alkaline Phosphatase Ur Leukocyte Esterase 2+ H Urine WBC (Auto) 55 Urine RBC (Auto) 1 11/25/17 11/26/17 11/26/17 21:33 06:30 06:30 WBC 13.8 H Hgb 9.1 L Hct 29.0 L Plt Count 233 BUN 14 Creatinine 1.0 Creat Clearance w eGFR > 60 Lactic Acid 2.1 H Total Bilirubin 0.7 AST 15 ALT 13 Alkaline Phosphatase 57 Ur Leukocyte Esterase Urine WBC (Auto) Urine RBC (Auto) Assessment Gram negative sepsis most lley urinary tract source Acute prostatitis Abd pain noted so lets get CT abd pelvis make sure nothing else Continue Meropenem Hopefully stop Carbepenem Await sensitivities KITTY Byrnes MD
[2017-11-26] MEDS ORDERED: SODIUM CHLORIDE 1,000 ML IV STA (08:46)
[2017-11-26] MEDS ORDERED: PT OWN MED DRAWER 7, Y5N ONE ×2 (09:13→17:56)
--- NOTE | 2017-11-26 09:42 | EKG ---
Test Reason : Blood Pressure : / mmHG Vent. Rate : 074 BPM Atrial Rate : 074 BPM P-R Int : 188 ms QRS Dur : 086 ms QT Int : 414 ms P-R-T Axes : 021 -06 008 degrees QTc Int : 459 ms NORMAL SINUS RHYTHM MINIMAL VOLTAGE CRITERIA FOR LVH, MAY BE NORMAL VARIANT WHEN COMPARED WITH ECG OF 02-JUL-2011 07:32, NONSPECIFIC T WAVE ABNORMALITY NO LONGER EVIDENT IN ANTERIOR LEADS Confirmed by KELLI BENITEZ, SATHISH ([id number]) on 11/26/2017 9:42:26 AM Referred By: Confirmed By:SATHISH PEREIRA MD
[2017-11-26] MEDS: ACETAMINOPHEN 325 MG TABLET (FP) PO PRN ×2 (10:14→19:56)
--- NOTE | 2017-11-26 10:24 | PN ---
Physical Exam: SUBJECTIVE: Patient seen and examined at the bedside. Family at the bedside. OBJECTIVE: Lactic acidosis improving Incentive spirometer lower abd pain persists: for CT scan Still having fevers initiate bowel regimen Vital Signs Period Temp Pulse Resp BP Sys/Simpson Pulse Ox Last 24 Hr 98 F-101.3 F 79-104 18-22 90-148/52-79 97-100 GENERAL: The patient is awake, alert, and fully oriented, in no acute distress. HEAD: Normal with no signs of trauma. EYES: PERRL, extraocular movements intact, sclera anicteric, conjunctiva clear. No ptosis. ENT: Ears normal, nares patent, oropharynx clear without exudates, moist mucous membranes. NECK: Trachea midline, full range of motion, supple. LUNGS: Breath sounds equal, clear to auscultation bilaterally, no wheezes, no crackles, no accessory muscle use. HEART: Regular rate and rhythm, S1, S2 without murmur, rub or gallop. ABDOMEN: soft, mildly distended, + bowel sounds, + pain on lower quadrants EXTREMITIES: 2+ pulses, warm, well-perfused, no edema. NEUROLOGICAL: Normal speech, gait not observed. PSYCH: Normal mood, normal affect. SKIN: Warm, dry, normal turgor, no rashes or lesions noted Laboratory Results - last 24 hr 11/25/17 11/25/17 11/25/17 12:30 12:30 12:30 WBC 19.6 H D RBC 4.19 Hgb 9.4 L Hct 30.1 L MCV 71.8 L MCH 22.3 L MCHC 31.1 L RDW 18.6 H Plt Count 285 MPV 7.2 L Neutrophils % 91.4 H Lymphocytes % 3.4 L D Monocytes % 4.9 D Eosinophils % 0.2 D Basophils % 0.1 PT with INR 16.20 H INR 1.43 H PTT (Actin FS) 29.8 VBG pH 7.29 L POC VBG pCO2 52.5 H POC VBG pO2 25.8 L Mixed VBG HCO3 24.6 Sodium Potassium Chloride Carbon Dioxide Anion Gap BUN Creatinine Creat Clearance w eGFR Random Glucose Lactic Acid Calcium Magnesium Total Bilirubin AST ALT Alkaline Phosphatase Creatine Kinase Troponin I Total Protein Albumin Urine Color Urine Appearance Urine pH Ur Specific [place] Urine Protein Urine Glucose (UA) Urine Ketones Urine Blood Urine Nitrite Urine Bilirubin Urine Urobilinogen Ur Leukocyte Esterase Urine WBC (Auto) Urine RBC (Auto) Urine Mucus Blood Type Antibody Screen 11/25/17 11/25/17 11/25/17 12:30 12:30 12:30 WBC RBC Hgb Hct MCV MCH MCHC RDW Plt Count MPV Neutrophils % Lymphocytes % Monocytes % Eosinophils % Basophils % PT with INR INR PTT (Actin FS) VBG pH POC VBG pCO2 POC VBG pO2 Mixed VBG HCO3 Sodium 128 L Potassium 3.6 Chloride 90 L Carbon Dioxide 25 Anion Gap 13 BUN 19 H D Creatinine 1.6 H D Creat Clearance w eGFR 44.02 Random Glucose 138 H Lactic Acid 6.6 H* Calcium 7.6 L Magnesium Total Bilirubin 0.6 D AST 16 D ALT 12 Alkaline Phosphatase 65 Creatine Kinase 149 Troponin I < 0.02 Total Protein 6.9 Albumin 3.0 L Urine Color Urine Appearance Urine pH Ur Specific [place] Urine Protein Urine Glucose (UA) Urine Ketones Urine Blood Urine Nitrite Urine Bilirubin Urine Urobilinogen Ur Leukocyte Esterase Urine WBC (Auto) Urine RBC (Auto) Urine Mucus Blood Type O POSITIVE Antibody Screen Negative 11/25/17 11/25/17 11/25/17 14:35 14:55 17:20 WBC RBC Hgb Hct MCV MCH MCHC RDW Plt Count MPV Neutrophils % Lymphocytes % Monocytes % Eosinophils % Basophils % PT with INR INR PTT (Actin FS) VBG pH POC VBG pCO2 POC VBG pO2 Mixed VBG HCO3 Sodium Potassium Chloride Carbon Dioxide Anion Gap BUN Creatinine Creat Clearance w eGFR Random Glucose Lactic Acid 3.4 H* Calcium Magnesium Total Bilirubin AST ALT Alkaline Phosphatase Creatine Kinase Troponin I Total Protein Albumin Urine Color Nidia Urine Appearance Clear Urine pH 6.0 Ur Specific [place] 1.006 Urine Protein Negative Urine Glucose (UA) Negative Urine Ketones Negative Urine Blood 2+ H Urine Nitrite Positive Urine Bilirubin Negative Urine Urobilinogen Negative Ur Leukocyte Esterase 2+ H Urine WBC (Auto) 55 Urine RBC (Auto) 1 Urine Mucus Rare Blood Type O POSITIVE Antibody Screen 11/25/17 11/25/17 11/26/17 21:33 21:33 06:30 WBC 13.8 H RBC 4.07 Hgb 9.1 L Hct 29.0 L MCV 71.3 L MCH 22.4 L MCHC 31.3 L RDW 18.7 H Plt Count 233 MPV 7.7 Neutrophils % Lymphocytes % Monocytes % Eosinophils % Basophils % PT with INR INR PTT (Actin FS) VBG pH POC VBG pCO2 POC VBG pO2 Mixed VBG HCO3 Sodium 137 Potassium 2.9 L* Chloride 105 D Carbon Dioxide 25 Anion Gap 7 L BUN 16 Creatinine 1.2 D Creat Clearance w eGFR Random Glucose 125 H Lactic Acid 2.1 H Calcium 6.6 L* Magnesium Total Bilirubin AST ALT Alkaline Phosphatase Creatine Kinase Troponin I Total Protein Albumin Urine Color Urine Appearance Urine pH Ur Specific [place] Urine Protein Urine Glucose (UA) Urine Ketones Urine Blood Urine Nitrite Urine Bilirubin Urine Urobilinogen Ur Leukocyte Esterase Urine WBC (Auto) Urine RBC (Auto) Urine Mucus Blood Type Antibody Screen 11/26/17 11/26/17 11/26/17 06:30 06:30 06:30 WBC RBC Hgb Hct MCV MCH MCHC RDW Plt Count MPV Neutrophils % Lymphocytes % Monocytes % Eosinophils % Basophils % PT with INR INR PTT (Actin FS) VBG pH POC VBG pCO2 POC VBG pO2 Mixed VBG HCO3 Sodium 139 Potassium 3.5 D Cancelled Chloride 105 Carbon Dioxide 23 Anion Gap 11 BUN 14 Creatinine 1.0 Creat Clearance w eGFR > 60 Random Glucose 121 H Lactic Acid 2.4 H* Calcium 7.6 L Magnesium 1.9 Total Bilirubin 0.7 AST 15 ALT 13 Alkaline Phosphatase 57 Creatine Kinase Troponin I Total Protein 5.6 L Albumin 2.2 L D Urine Color Urine Appearance Urine pH Ur Specific [place] Urine Protein Urine Glucose (UA) Urine Ketones Urine Blood Urine Nitrite Urine Bilirubin Urine Urobilinogen Ur Leukocyte Esterase Urine WBC (Auto) Urine RBC (Auto) Urine Mucus Blood Type Antibody Screen Active Medications Generic Name Dose Route Start Last Admin Trade Name Freq PRN Reason Stop Dose Admin Acetaminophen 650 mg 11/25/17 22:37 11/26/17 10:14 Tylenol - PO 650 mg Q6H PRN Administration fever Heparin Sodium (Porcine) 5,000 unit 11/25/17 22:00 11/26/17 06:39 Heparin - SQ 5,000 unit TID [facility]OOKE Administration Meropenem 1 gm in 20 mls @ 240 mls/hr 11/25/17 15:00 11/26/17 10:14 Merrem (Restricted To Id) - IVPUSH 240 mls/hr Q8H-IV [facility] Administration ASSESSMENT/PLAN: Patient is a 62 year old male with a significant past medical history of hypertension and BPH. He presented to the ED on 11/25/2017 with dysuria and found to have positive blood cultures, NELY and hypocalcemia. A dodson was placed on admission for urinary retention. Further admission labs and workup showed patient to have a WBC of 19.6, lactic acidosis at 6.6, creatinine of 1.[address] scan of abdomen: development of bilateral pleural effusions, right > left with compression atelectasis vs. consolidation. possible collection antior to the right psoas muscle with inflammatory changes. ID: Sepsis/urosepsis/Bacteremia Blood cultures 11/24 + lactobacillus, repeat BC ngtd, urine cultures pending Started on Meropenem (11/25 > ) Monitor labs, vitals, fever curve Leukocytosis improving Persistent lactic acidosis: Lactic acidosis persists but improving slowly IVF fluid boluses given with repeat lactic acid q4, may need to hold off on IVF boluses as he CT scan shows development of roslyn pleural effusions Still having high grade fevers, monitor labs, vitals Tylenol PRN Cardiology: Hypertension, controlled Monitor in the setting of sepsis BP stable Renal: UTI/Dysuria UC pending Monitor output F.E.N. Fluids: NS @ 100cc/hr Electrolytes: monitor Nutrition: low sodium: Prophy: Heparin TID, GI: Protonix Visit type - Emergency Visit Emergency Visit: Yes ED Registration Date: 11/25/17 Care time: The patient presented to the Emergency Department on the above date and was hospitalized for further evaluation of their emergent condition. - New Patient This patient is new to me today: Yes Date on this admission: 11/26/17 - Critical Care Critical Care patient: No - Discharge Referral Referred to [facility] Med P.C.: No
[2017-11-26] MEDS: DOCUSATE SODIUM 100 MG CAPSULE (FP) PO SCH ×2 (13:56→22:33)
[2017-11-26] MEDS: POLYETHYLENE GLYCOL 3350 119 GM BTL PO SCH (13:56)
[2017-11-26] MEDS: PANTOPRAZOLE 40 MG TABLET (FP) PO SCH (14:06)
[2017-11-26] MEDS ORDERED: SODIUM CHLORIDE 500 ML IV STA (15:52)
[2017-11-27] MEDS: MEROPENEM 1 GM PUSH 1 GM/20 ML DISP.SYRIN IVPUSH SCH ×3 (01:54→18:04)
[2017-11-27] MEDS: ACETAMINOPHEN 325 MG TABLET (FP) PO PRN ×2 (04:38→13:31)
[2017-11-27] MEDS: HEPARIN NA (PORCINE) 5,000 UNITS/ML 1ML VIAL SQ SCH ×3 (06:30→21:33)
[2017-11-27] MEDS: DOCUSATE SODIUM 100 MG CAPSULE (FP) PO SCH ×3 (06:30→21:33)
[2017-11-27 06:56] LABS: BASO % 0.1 % (0-2.0); EOS % 0.1 % (0-4.5); HEMATOCRIT 26.3 % (35.4-49); HEMOGLOBIN 8.7 GM/dL (11.7-16.9); LYMPH % 6.2 % (8-40); MCH 23.1 pg (25.7-33.7); MCHC 33.1 g/dl (32.0-35.9); MEAN CELL VOLUME 69.7 fl (80-96); MEAN PLT VOLUME 7.9 fl (7.5-11.1); MONO % 3.8 % (3.8-10.2); NEUT % 89.8 % (42.8-82.8); PLATELET COUNT 230 K/MM3 (134-434); RBC 3.77 M/mm3 (4.00-5.60); RDW 18.8 % (11.9-15.9); WHITE BLOOD COUNT 7.3 K/mm3 (4.0-10.0)
[2017-11-27 07:04] LABS: CHLORIDE 101 mmol/L (98-107); SODIUM 137 mmol/L (136-145)
[2017-11-27 07:29] LABS: ANION GAP 13 (8-16); BLOOD UREA NITROGEN 8 mg/dL (7-18); CALCIUM 7.6 mg/dL (8.5-10.1); CO2 23 mmol/L (21-32); CREATININE 0.9 mg/dL (0.7-1.3); GLUCOSE,RANDOM 130 mg/dL (74-106); PHOSPHOROUS 1.3 mg/dL (2.5-4.9)
[2017-11-27 07:53] LABS: POTASSIUM 2.7 mmol/L (3.5-5.1)
[2017-11-27] MEDS ORDERED: POTASSIUM PHOSPHATE 30 MM in DEXTROSE 5%-WATER - 500 ML IVPB ONE (09:17)
[2017-11-27] MEDS ORDERED: NAPH,MB-DB/K PH,MBDB POWDER PACKET PO SCH (10:00)
--- NOTE | 2017-11-27 10:16 | PN ---
Progress Note (short form) - Note Progress Note: Renal follow up for NELY Pt seen and examined at the bedside has dodson in place making urine no fever, chills, sob, CP no N/V/D has tenderness on his left groin Vital Signs Temperature 99.8 F H 11/27/17 06:41 Pulse Rate 98 H 11/27/17 06:41 Respiratory Rate 20 11/27/17 06:41 Blood Pressure 114/68 11/27/17 06:41 O2 Sat by Pulse Oximetry (%) 99 11/26/17 21:00 Intake & Output 11/24/17 11/25/17 11/26/17 11/27/17 23:59 23:59 23:59 23:59 Intake Total 5450 6340 480 Output Total 2700 3600 1600 Balance 2750 2740 -1120 Weight 72.745 kg NAD awake and alert neck supple, No JVD, MMM RRR, No M/R CTA soft NT/ND No LE edema CBC, BMP 11/27/17 05:10 11/27/17 05:10 Current Medications Acetaminophen (Tylenol -) 650 mg PO Q6H PRN PRN Reason: fever Last Admin: 11/27/17 04:38 Dose: 650 mg Docusate Sodium (Colace -) 100 mg PO TID BROOKE Last Admin: 11/27/17 06:30 Dose: 100 mg Heparin Sodium (Porcine) (Heparin -) 5,000 unit SQ TID BROOKE Last Admin: 11/27/17 06:30 Dose: 5,000 unit Meropenem (Merrem (Restricted To Id) -) 1 gm in 20 mls @ 240 mls/hr IVPUSH Q8H- IV [facility]OOKE Last Admin: 11/27/17 01:54 Dose: 240 mls/hr Potassium Chloride 10 meq/ (Sodium Chloride) 105 mls @ 105 mls/hr IVPB Q60M [facility] Stop: 11/27/17 10:59 Potassium Phosphate 30 mm/ (Dextrose) 510 mls @ 85 mls/hr IVPB ONCE ONE Stop: 11/27/17 15:16 Pantoprazole Sodium (Protonix -) 40 mg PO DAILY BROOKE Last Admin: 11/26/17 14:06 Dose: 40 mg Polyethylene Glycol (Miralax (For Daily Use) -) 17 gm PO DAILY [facility]OOKE Last Admin: 11/26/17 13:56 Dose: 17 grams Potassium Phos/Sodium Phos (Phos-Nak Packet -) 1 packet PO BID BROOKE 62 year old gentleman with PMhx of Hypertension, remote hx of BPH (was on flomax previosuly) who presented to the ED with UTI symptoms and found to have + blood culture with NELY and hypocalcemia. #Acute Kidney Injury in setting of Bacteremia/UTI with ARB/Diuretics Renal function now WNL holding IVF bc of pleural effusions seen on CT scan Trend BUN/Cr keep MAP > 65 holding diuretics for now #Lactic acidosis now improved #UTI/Bacteremia/Psoas muscle collection pt growing gram negative bactermiea continue meropenum IR and surgical eval for collection, ? drainage #Urinary retention from prostate enlargement due to prostatitis consider tiral of void Thank you Will follow Ramez Chicas DO
[2017-11-27] MEDS: PANTOPRAZOLE 40 MG TABLET (FP) PO SCH (10:19)
[2017-11-27] MEDS: POLYETHYLENE GLYCOL 3350 119 GM BTL PO SCH (10:21)
--- NOTE | 2017-11-27 10:33 | PN ---
Progress Note, Physician Chief Complaint: ID Feels looks much better Meropenem day 3 - Current Medication List Current Medications: Active Medications Acetaminophen (Tylenol -) 650 mg PO Q6H PRN PRN Reason: fever Last Admin: 11/27/17 04:38 Dose: 650 mg Docusate Sodium (Colace -) 100 mg PO TID [facility] Last Admin: 11/27/17 06:30 Dose: 100 mg Heparin Sodium (Porcine) (Heparin -) 5,000 unit SQ TID [facility] Last Admin: 11/27/17 06:30 Dose: 5,000 unit Meropenem (Merrem (Restricted To Id) -) 1 gm in 20 mls @ 240 mls/hr IVPUSH Q8H- IV [facility] Last Admin: 11/27/17 01:54 Dose: 240 mls/hr Potassium Chloride 10 meq/ (Sodium Chloride) 105 mls @ 105 mls/hr IVPB Q60M [facility] Stop: 11/27/17 10:59 Potassium Phosphate 30 mm/ (Dextrose) 510 mls @ 85 mls/hr IVPB ONCE ONE Stop: 11/27/17 15:16 Pantoprazole Sodium (Protonix -) 40 mg PO DAILY [facility] Last Admin: 11/26/17 14:06 Dose: 40 mg Polyethylene Glycol (Miralax (For Daily Use) -) 17 gm PO DAILY [facility] Last Admin: 11/26/17 13:56 Dose: 17 grams Potassium Phos/Sodium Phos (Phos-Nak Packet -) 1 packet PO BID [facility] Tamsulosin HCl (Flomax -) 0.8 mg PO DAILY@0830 [facility] - Objective Vital Signs: Vital Signs Temperature 99.8 F H 11/27/17 06:41 Pulse Rate 98 H 11/27/17 06:41 Respiratory Rate 20 11/27/17 06:41 Blood Pressure 114/68 11/27/17 06:41 O2 Sat by Pulse Oximetry (%) 99 11/26/17 21:00 Constitutional: Yes: Well Nourished, No Distress HENT: Yes: WNL, Atraumatic Neck: Yes: WNL, Supple Cardiovascular: Yes: Regular Rate and Rhythm, S1, S2 Respiratory: Yes: WNL, Regular, CTA Bilaterally Gastrointestinal: Yes: Soft, Other (Tenderness less today) Labs: CBC, BMP 11/27/17 05:10 11/27/17 05:10 INR, PTT INR 1.43 (0.82-1.09) H 11/25/17 12:30 Assessment/Plan Microbiology 11/25/17 13:52 Blood - Peripheral Venous Blood Culture - Preliminary NO GROWTH OBTAINED AFTER 24 HOURS, INCUBATION TO CONTINUE FOR 4 DAYS. 11/25/17 12:30 Blood - Peripheral Venous Blood Culture - Preliminary NO GROWTH OBTAINED AFTER 24 HOURS, INCUBATION TO CONTINUE FOR 4 DAYS. 11/25/17 12:30 Blood - Peripheral Venous Blood Culture - Preliminary NO GROWTH OBTAINED AFTER 24 HOURS, INCUBATION TO CONTINUE FOR 4 DAYS. Laboratory Tests 11/25/17 11/25/17 11/27/17 12:30 14:55 05:10 WBC 19.6 H D 7.3 D Plt Count 230 BUN Creatinine Ur Leukocyte Esterase 2+ H Urine WBC (Auto) 55 Urine RBC (Auto) 1 11/27/17 05:10 WBC Plt Count BUN 8 D Creatinine 0.9 Ur Leukocyte Esterase Urine WBC (Auto) Urine RBC (Auto) Assessment Sepsis syndrome Gram negative bacteremia Prostatitis with ascending infection to kidney Plan I reviewed CT regarding "psoas" with Dr Reed who feels no collection present Clinically he looks [facility] better today Culture will be available this morning. ?? perhaps we can switch off carbepenem and give Ceftriaxone in place Fitz BENITEZ
[2017-11-27] MEDS: POTASSIUM CHLORIDE 10 MEQ in SODIUM CHLORIDE 100 ML IVPB SCH ×3 (10:40→13:16)
[2017-11-27] MEDS: TAMSULOSIN HCL 0.4 MG CAP.ER.24H (FP) PO SCH (10:40)
--- NOTE | 2017-11-27 11:22 | PN ---
Physical Exam: SUBJECTIVE: Patient seen and examined at the bedside. He looks better today and states he feels better. He was able to walk with PT today. Appetite improving. OBJECTIVE: K dropped to 2.7, 3 K runs ordered: repeat labs shows K of 2.7 but K supplements not yet completed. Will repeat serum K at 6pm Vital Signs Period Temp Pulse Resp BP Sys/Simpson Pulse Ox Last 24 Hr 99.1 F-100.7 F 91-104 18-20 110-141/68-82 99 GENERAL: The patient is awake, alert, and fully oriented, in no acute distress. HEAD: Normal with no signs of trauma. EYES: PERRL, extraocular movements intact, sclera anicteric, conjunctiva clear. No ptosis. ENT: Ears normal, nares patent, oropharynx clear without exudates, moist mucous membranes. NECK: Trachea midline, full range of motion, supple. LUNGS: Breath sounds equal, crackles at the bases right > left HEART: Regular rate and rhythm 90s ABDOMEN: soft, mildly distended, + bowel sounds, + pain on lower quadrants EXTREMITIES: 2+ pulses, warm, well-perfused, no edema. NEUROLOGICAL: Normal speech, gait not observed. PSYCH: Normal mood, normal affect. SKIN: Warm, dry, normal turgor, no rashes or lesions noted Laboratory Results - last 24 hr 11/26/17 11/26/17 11/26/17 08:33 14:17 20:35 WBC RBC Hgb Hct MCV MCH MCHC RDW Plt Count MPV Neutrophils % Lymphocytes % Monocytes % Eosinophils % Basophils % PTT (Actin FS) Sodium Potassium Chloride Carbon Dioxide Anion Gap BUN Creatinine Random Glucose Lactic Acid 2.6 H* 1.9 Calcium Phosphorus Magnesium C-Reactive Protein 25.2 H 11/27/17 11/27/17 11/27/17 05:10 05:10 05:10 WBC 7.3 D RBC 3.77 L Hgb 8.7 L Hct 26.3 L MCV 69.7 L MCH 23.1 L MCHC 33.1 RDW 18.8 H Plt Count 230 MPV 7.9 Neutrophils % 89.8 H Lymphocytes % 6.2 L D Monocytes % 3.8 Eosinophils % 0.1 Basophils % 0.1 PTT (Actin FS) 31.8 Sodium 137 Potassium 2.7 L* D Chloride 101 Carbon Dioxide 23 Anion Gap 13 BUN 8 D Creatinine 0.9 Random Glucose 130 H Lactic Acid Calcium 7.6 L Phosphorus 1.3 L Magnesium 2.0 C-Reactive Protein Active Medications Generic Name Dose Route Start Last Admin Trade Name Jaime PRN Reason Stop Dose Admin Acetaminophen 650 mg 11/25/17 22:37 11/27/17 04:38 Tylenol - PO 650 mg Q6H PRN Administration fever Docusate Sodium 100 mg 11/26/17 14:00 11/27/17 06:30 Colace - PO 100 mg TID BROOKE Administration Heparin Sodium (Porcine) 5,000 unit 11/25/17 22:00 11/27/17 06:30 Heparin - SQ 5,000 unit TID BROOKE Administration Meropenem 1 gm in 20 mls @ 240 mls/hr 11/25/17 15:00 11/27/17 10:18 Merrem (Restricted To Id) - IVPUSH 240 mls/hr Q8H-IV [facility] Administration Potassium Phosphate 30 mm/ 510 mls @ 85 mls/hr 11/27/17 09:17 Dextrose IVPB 11/27/17 15:16 ONCE ONE Pantoprazole Sodium 40 mg 11/26/17 11:00 11/27/17 10:19 Protonix - PO 40 mg DAILY BROOKE Administration Polyethylene Glycol 17 gm 11/26/17 11:00 11/27/17 10:21 Miralax (For Daily Use) - PO 17 grams DAILY BROOKE Administration Potassium Phos/Sodium Phos 1 packet 11/27/17 10:00 11/27/17 10:18 Phos-Nak Packet - PO 1 packet BID BROOKE Administration Tamsulosin HCl 0.8 mg 11/27/17 10:30 11/27/17 10:40 Flomax - PO 0.8 mg DAILY@0830 BROOKE Administration ASSESSMENT/PLAN: Patient is a 62 year old male with a significant past medical history of hypertension and BPH. He presented to the ED on 11/25/2017 with dysuria and found to have positive blood cultures, NELY and hypocalcemia. A dodson was placed on admission for urinary retention. Further admission labs and workup showed patient to have a WBC of 19.6, lactic acidosis at 6.6, creatinine of 1.[address] scan of abdomen: development of bilateral pleural effusions, right > left with compression atelectasis vs. consolidation. possible collection anterior to the right psoas muscle with inflammatory changes. ID: Sepsis/urosepsis/Bacteremia Blood cultures 11/24 + lactobacillus, repeat BC ngtd, urine cultures negative Started on Meropenem (11/25 > ) Monitor labs, vitals, fever curve improving WBC now 7.3 ID following Persistent lactic acidosis, resolved IVF fluid boluses given with repeat lactic acid q4 Still having fevers. but overall fever curve is better Tylenol PRN Pulmonary Bilateral pleural effusions, as seen on CT Patient has received fluid resuscitation for hypotension and sepsis Monitor output Hold off on diuretics at this time Cardiology: Hypertension, controlled Monitor in the setting of sepsis BP stable Renal: UTI/Dysuria/Prostititis/BPH UC no growth Dodson catheter present with clear/hazy urine/no blood seen On Flomax 0.8mg Urology consult F.E.N. Fluids: discontinue ivf for fluid overload, encourge PO intake Electrolytes: K repleted, repeat at 6pm Nutrition: low sodium Prophy: Heparin TID, GI: Protonix full code Visit type - Emergency Visit Emergency Visit: Yes ED Registration Date: 11/25/17 Care time: The patient presented to the Emergency Department on the above date and was hospitalized for further evaluation of their emergent condition. - New Patient This patient is new to me today: Yes Date on this admission: 11/27/17 - Critical Care Critical Care patient: No - Discharge Referral Referred to [facility] Med P.C.: No
[2017-11-27] MEDS ORDERED: BISACODYL 10 MG SUPP.RECT PR ONE (11:23)
[2017-11-27] MEDS ORDERED: POTASSIUM CHLORIDE 10 MEQ in SODIUM CHLORIDE 1,000 ML IVPB SCH ×2 (13:30→14:45)
[2017-11-27] MEDS ORDERED: POTASSIUM CHLORIDE ORAL LIQUID 20 MEQ/15 ML PO ONE ×3 (14:44→22:30)
[2017-11-27] MEDS ORDERED: BISACODYL 10 MG SUPP.RECT RC ONE (14:45)
[2017-11-27] MEDS ORDERED: PT OWN MED DRAWER 7, Y5N ONE (17:50)
[2017-11-27] MEDS ORDERED: POTASSIUM CHLORIDE TABS 20 MEQ TABLET.ER (FP) PO ONE ×4 (18:00→20:00)
[2017-11-27 21:44] LABS: MAGNESIUM 1.9 mg/dL (1.8-2.4)
[2017-11-27 21:47] LABS: POTASSIUM 2.8 mmol/L (3.5-5.1)
[2017-11-28] MEDS ORDERED: PT OWN MED DRAWER 7, Y5N ONE ×2 (01:31→09:00)
[2017-11-28] MEDS: MEROPENEM 1 GM PUSH 1 GM/20 ML DISP.SYRIN IVPUSH SCH ×2 (01:36→09:10)
[2017-11-28] MEDS: ACETAMINOPHEN 325 MG TABLET (FP) PO PRN ×2 (05:40→18:36)
[2017-11-28] MEDS: HEPARIN NA (PORCINE) 5,000 UNITS/ML 1ML VIAL SQ SCH ×3 (05:40→22:05)
[2017-11-28] MEDS: DOCUSATE SODIUM 100 MG CAPSULE (FP) PO SCH ×3 (05:40→22:05)
[2017-11-28 06:39] LABS: BASO % 0.6 % (0-2.0); HEMATOCRIT 23.4 % (35.4-49); HEMOGLOBIN 7.8 GM/dL (11.7-16.9); LYMPH % 24.8 % (8-40); MCH 23.1 pg (25.7-33.7); MCHC 33.2 g/dl (32.0-35.9); MEAN CELL VOLUME 69.6 fl (80-96); MEAN PLT VOLUME 7.4 fl (7.5-11.1); MONO % 16.9 % (3.8-10.2); NEUT % 54.7 % (42.8-82.8); PLATELET COUNT 206 K/MM3 (134-434); RBC 3.36 M/mm3 (4.00-5.60); RDW 18.3 % (11.9-15.9); WHITE BLOOD COUNT 4.3 K/mm3 (4.0-10.0)
[2017-11-28 06:49] LABS: ANION GAP 6 (8-16); BLOOD UREA NITROGEN 6 mg/dL (7-18); CALCIUM 7.1 mg/dL (8.5-10.1); CHLORIDE 103 mmol/L (98-107); CO2 27 mmol/L (21-32); GLUCOSE,RANDOM 116 mg/dL (74-106); MAGNESIUM 1.7 mg/dL (1.8-2.4); POTASSIUM 3.3 mmol/L (3.5-5.1); SODIUM 136 mmol/L (136-145)
[2017-11-28 06:52] LABS: CREATININE 0.8 mg/dL (0.7-1.3); PHOSPHOROUS 1.2 mg/dL (2.5-4.9)
[2017-11-28] MEDS ORDERED: POTASSIUM PHOSPHATE 30 MM in DEXTROSE 5%-WATER - 500 ML IVPB ONE (08:04)
[2017-11-28] MEDS ORDERED: MAGNESIUM SULF 50% (8.12 MEQ/2 ML-1 GM VIAL) IVPB SCH (08:15)
--- NOTE | 2017-11-28 08:53 | PN ---
Progress Note (short form) - Note Progress Note: Renal follow up for NELY Pt seen and examined at the bedside reports testicular pain no dysuria no abd pain or flank pain + low grade fever this am Vital Signs Temperature 100.2 F H 11/28/17 05:43 Pulse Rate 92 H 11/28/17 05:43 Respiratory Rate 20 11/28/17 05:43 Blood Pressure 121/68 11/28/17 05:43 O2 Sat by Pulse Oximetry (%) 99 11/27/17 21:00 Intake & Output 11/25/17 11/26/17 11/27/17 11/28/17 23:59 23:59 23:59 23:59 Intake Total 5450 6340 1080 Output Total 2700 3600 3800 400 Balance 2750 2740 -2720 -400 Weight 72.745 kg NAD RRR, No M/R CTA soft NT/ND No LE edema CBC, BMP 11/28/17 05:05 11/28/17 05:05 Current Medications Acetaminophen (Tylenol -) 650 mg PO Q6H PRN PRN Reason: fever Last Admin: 11/28/17 05:40 Dose: 650 mg Docusate Sodium (Colace -) 100 mg PO TID [facility]OOKE Last Admin: 11/28/17 05:40 Dose: 100 mg Heparin Sodium (Porcine) (Heparin -) 5,000 unit SQ TID [facility] Last Admin: 11/28/17 05:40 Dose: 5,000 unit Meropenem (Merrem (Restricted To Id) -) 1 gm in 20 mls @ 240 mls/hr IVPUSH Q8H- IV [facility] Last Admin: 11/28/17 01:36 Dose: 240 mls/hr Potassium Phosphate 30 mm/ (Dextrose) 510 mls @ 62.5 mls/hr IVPB ONCE ONE Stop: 11/28/17 16:13 MAGNESIUM SULFATE IN WATER (Magnesium Sulf 2 G/50 Ml Bag) 2 gm in 50 mls @ 50 mls/hr IVPB Q1H [facility] Stop: 11/28/17 10:14 Pantoprazole Sodium (Protonix -) 40 mg PO DAILY [facility] Last Admin: 11/27/17 10:19 Dose: 40 mg Polyethylene Glycol (Miralax (For Daily Use) -) 17 gm PO DAILY [facility] Last Admin: 11/27/17 10:21 Dose: 17 grams Potassium Chloride (K-Dur -) 40 meq PO BID [facility] Tamsulosin HCl (Flomax -) 0.8 mg PO DAILY@0830 [facility] Last Admin: 11/27/17 10:40 Dose: 0.8 mg 62 year old gentleman with PMhx of Hypertension, remote hx of BPH (was on flomax previosuly) who presented to the ED with UTI symptoms and found to have + blood culture with NELY and hypocalcemia. #Acute Kidney Injury in setting of Bacteremia/UTI with ARB/Diuretics renal function imporved and stable #UTI/Bacteremia/Prostatits/Testicular Pain check US of the scrotum today continue Abx as per ID ? nee for repeat culture as pt have fevers no definative collection to be drained per IR #Urinary retention from prostate enlargement due to prostatitis dodson in place consider trial of void Ramez Chicas DO
[2017-11-28] MEDS: POTASSIUM CHLORIDE TABS 20 MEQ TABLET.ER (FP) PO SCH ×2 (09:10→22:05)
[2017-11-28] MEDS: TAMSULOSIN HCL 0.4 MG CAP.ER.24H (FP) PO SCH (09:10)
[2017-11-28] MEDS: POLYETHYLENE GLYCOL 3350 119 GM BTL PO SCH (09:10)
[2017-11-28] MEDS: PANTOPRAZOLE 40 MG TABLET (FP) PO SCH (09:11)
--- NOTE | 2017-11-28 09:49 | PN ---
Progress Note (short form) - Note Progress Note: ID CLINICAL IMPROVEMENT MEROPENEM Selected Entries 11/28/17 05:43 Temperature 100.2 F H Pulse Rate 92 H Respiratory 20 Rate Blood Pressure 121/68 Microbiology 11/24/17 22:20 Blood - Peripheral Venous Blood Culture - Final Escherichia Coli 11/24/17 22:20 Blood - Peripheral Venous Blood Culture - Final Escherichia Coli 11/24/17 20:20 Urine - Urine Clean Catch Urine Culture - Final Escherichia Coli Laboratory Tests 11/27/17 11/28/17 11/28/17 21:00 05:05 05:05 WBC 4.3 D Hgb 7.8 L D Hct 23.4 L Plt Count 206 Potassium 2.8 L* 3.3 L BUN 6 L D Creatinine 0.8 ASSESSMENT SEPSIS SYNDROME WITH UTI E COLI PANSENSITIVE PLAN SUBSTITUTE CEFTRIAXONE 2 GRS THEN SWITCH TO PO LEVOFLOX AT TIME OF DISCHARGE TOTAL 14 DAYS OF TREATMENT
[2017-11-28] MEDS: MAGNESIUM SULFATE IN WATER 2 GM/50 ML IVPB IVPB SCH ×2 (10:10→11:04)
--- NOTE | 2017-11-28 10:14 | PN ---
Physical Exam: SUBJECTIVE: Patient seen and examined at the bedside. he tells me that he does not feel butter, but his family states that he looks and sounds better. he is concerned of having "testicular pain" OBJECTIVE: palpation of scrotum, mildly tender urine clear/hazy on dodson catheter ultrasound of scrotum ordered by renal low grade fever 100.2f this a.m. but overall looking better since last 48 hours: he is ambulating, appetite improved, fever curve improving His K is 3.3 now electrolytes to be repleted by renal: hypophos, hypoK, hypomag Vital Signs Period Temp Pulse Resp BP Sys/Simpson Pulse Ox Last 24 Hr 98.8 F-100.9 F 84-101 18-20 121-153/68-90 99 GENERAL: The patient is awake, alert, and fully oriented, in no acute distress. HEAD: Normal with no signs of trauma. EYES: PERRL, extraocular movements intact, sclera anicteric, conjunctiva clear. No ptosis. ENT: Ears normal, nares patent, oropharynx clear without exudates, moist mucous membranes. NECK: Trachea midline, full range of motion, supple. LUNGS: Breath sounds equal, crackles at the bases right > left HEART: Regular rate and rhythm 90s ABDOMEN: soft, mildly distended, + bowel sounds, + pain on lower quadrants EXTREMITIES: 2+ pulses, warm, well-perfused, no edema. NEUROLOGICAL: Normal speech, gait not observed. PSYCH: Normal mood, normal affect. SKIN: Warm, dry, normal turgor, no rashes or lesions noted Laboratory Results - last 24 hr 11/27/17 11/27/17 11/27/17 13:40 17:10 21:00 WBC RBC Hgb Hct MCV MCH MCHC RDW Plt Count MPV Neutrophils % Lymphocytes % Monocytes % Eosinophils % Basophils % PTT (Actin FS) Sodium Cancelled Potassium 2.7 L* Cancelled 2.8 L* Chloride Cancelled Carbon Dioxide Cancelled Anion Gap Cancelled BUN Cancelled Creatinine Cancelled Random Glucose Cancelled Hemoglobin A1c % Calcium Cancelled Phosphorus Cancelled Magnesium 1.9 11/28/17 11/28/17 11/28/17 05:05 05:05 05:05 WBC 4.3 D RBC 3.36 L Hgb 7.8 L D Hct 23.4 L MCV 69.6 L MCH 23.1 L MCHC 33.2 RDW 18.3 H Plt Count 206 MPV 7.4 L Neutrophils % 54.7 D Lymphocytes % 24.8 D Monocytes % 16.9 H D Eosinophils % 3.0 D Basophils % 0.6 D PTT (Actin FS) 32.7 Sodium 136 Potassium 3.3 L Chloride 103 Carbon Dioxide 27 Anion Gap 6 L BUN 6 L D Creatinine 0.8 Random Glucose 116 H Hemoglobin A1c % Calcium 7.1 L Phosphorus 1.2 L Magnesium 1.7 L 11/28/17 05:05 WBC RBC Hgb Hct MCV MCH MCHC RDW Plt Count MPV Neutrophils % Lymphocytes % Monocytes % Eosinophils % Basophils % PTT (Actin FS) Sodium Potassium Chloride Carbon Dioxide Anion Gap BUN Creatinine Random Glucose Hemoglobin A1c % 5.5 Calcium Phosphorus Magnesium Active Medications Generic Name Dose Route Start Last Admin Trade Name Freq PRN Reason Stop Dose Admin Acetaminophen 650 mg 11/25/17 22:37 11/28/17 05:40 Tylenol - PO 650 mg Q6H PRN Administration fever Docusate Sodium 100 mg 11/26/17 14:00 11/28/17 05:40 Colace - PO 100 mg TID [facility]OOKE Administration Heparin Sodium (Porcine) 5,000 unit 11/25/17 22:00 11/28/17 05:40 Heparin - SQ 5,000 unit TID [facility] Administration Potassium Phosphate 30 mm/ 510 mls @ 62.5 mls/hr 11/28/17 08:04 Dextrose IVPB 11/28/17 16:13 ONCE ONE CEFTRIAXONE IN IS-OSM DEXTROSE 2 gm in 50 mls @ 100 mls/hr 11/28/17 10:00 Ceftriaxone 2 Gm-D5w Bag IVPB DAILY [facility] Pantoprazole Sodium 40 mg 11/26/17 11:00 11/28/17 09:11 Protonix - PO 40 mg DAILY [facility] Administration Polyethylene Glycol 17 gm 11/26/17 11:00 11/28/17 09:10 Miralax (For Daily Use) - PO 17 grams DAILY [facility] Administration Potassium Chloride 40 meq 11/28/17 10:00 11/28/17 09:10 K-Dur - PO 40 meq BID [facility] Administration Tamsulosin HCl 0.8 mg 11/27/17 10:30 11/28/17 09:10 Flomax - PO 0.8 mg DAILY@0830 [facility] Administration ASSESSMENT/PLAN: Patient is a 62 year old male with a significant past medical history of hypertension and BPH. He presented to the ED on 11/25/2017 with dysuria and found to have positive blood cultures, NELY and hypocalcemia. A dodson was placed on admission for urinary retention. Further admission labs and workup showed patient to have a WBC of 19.6, lactic acidosis at 6.6, creatinine of 1.[address] scan of abdomen: development of bilateral pleural effusions, right > left with compression atelectasis vs. consolidation. possible collection anterior to the right psoas muscle with inflammatory changes. Renal infection cannot be excluded. ID: Sepsis/urosepsis/Bacteremia Blood cultures 11/24 + lactobacillus, repeat BC ngtd, urine cultures negative Started Ceftriaxone Monitor labs, vitals, fever curve improving WBC wnl ID following Persistent lactic acidosis, resolved IVF fluid boluses given with repeat lactic acid q4 Still having fevers. but overall fever curve is better Tylenol PRN Pulmonary Bilateral pleural effusions, as seen on CT Patient has received fluid resuscitation for hypotension and sepsis Monitor output Hold off on diuretics at this time Cardiology: Hypertension, controlled Monitor in the setting of sepsis BP stable Renal: UTI/Dysuria/Prostititis/BPH UC no growth Dodson catheter present with clear/hazy urine/no blood seen On Flomax 0.8mg Urology following, notes reviewed: levaquin initiated F.E.N. Fluids: discontinue ivf for fluid overload, encourage PO intake Electrolytes: K repleted, repeat at 6pm Nutrition: low sodium Prophy: Heparin TID, GI: Protonix full code Visit type - Emergency Visit Emergency Visit: Yes ED Registration Date: 11/25/17 Care time: The patient presented to the Emergency Department on the above date and was hospitalized for further evaluation of their emergent condition. - New Patient This patient is new to me today: No - Critical Care Critical Care patient: No - Discharge Referral Referred to [facility] No
[2017-11-28] MEDS: CEFTRIAXONE IN IS-OSM DEXTROSE 2 GM/50 ML BAG IVPB SCH (11:04)
--- NOTE | 2017-11-28 13:27 | CONSULT ---
Consult - text type - Consultation Consultation Note: 62 yo male presented w abdominal pain 3 days ago at which time dodson [placed w pvr of 650 currently dodson to sd clear On tamsulosin Bladder non palpable
--- NOTE | 2017-11-28 13:39 | CON.GU ---
Consult Consult Specialty:: Urology Reason for Consultation:: Urinary retention/ Scrotal pain - History of Present Illness History of Present Illness: 62 yo male presented w abdominal pain had 650 cc upon catherization also c/o left hemiscrotal pain - History Source History Provided By: Patient, Family Member, Medical Record - Alcohol/Substance Use Hx Alcohol Use: No - Smoking History Smoking history: Never smoked Have you smoked in the past 12 months: No Home Medications - Allergies Allergies/Adverse Reactions: Allergies Allergy/AdvReac Type Severity Reaction Status Date / Time No Known Allergies Allergy Verified 11/25/17 11:18 - Home Medications Home Medications: Ambulatory Orders NK [No Known Home Medication] 11/25/17 Physical Exam- Vital Signs: Vital Signs Temperature 99.2 F 11/28/17 10:00 Pulse Rate 103 H 11/28/17 10:00 Respiratory Rate 22 11/28/17 10:00 Blood Pressure 119/93 11/28/17 10:00 O2 Sat by Pulse Oximetry (%) 98 11/28/17 09:00 Renal/: Yes: Scrotal Edema (left epidiymal tenderness) Labs: CBC, BMP 11/28/17 05:05 11/28/17 05:05 Imaging - Results Ultrasound: Report Reviewed Problem List - Problems (1) Urinary retention due to benign prostatic hyperplasia Assessment/Plan: cont dodson to sd will require urodynamics and likely BPH procedure Code(s): N40.1 - BENIGN PROSTATIC HYPERPLASIA WITH LOWER URINARY TRACT SYMP; R33.8 - OTHER RETENTION OF URINE (2) Epididymitis, left Assessment/Plan: for SHABBIR Start levaquin iv Follow clinically Code(s): N45.1 - EPIDIDYMITIS
--- NOTE | 2017-11-28 18:37 | EKG ---
Test Reason : Blood Pressure : / mmHG Vent. Rate : 097 BPM Atrial Rate : 097 BPM P-R Int : 132 ms QRS Dur : 086 ms QT Int : 380 ms P-R-T Axes : 009 -05 012 degrees QTc Int : 482 ms NORMAL SINUS RHYTHM MINIMAL VOLTAGE CRITERIA FOR LVH, MAY BE NORMAL VARIANT PROLONGED QT ABNORMAL ECG WHEN COMPARED WITH ECG OF 25-NOV-2017 13:07, NO SIGNIFICANT CHANGE WAS FOUND Confirmed by MD RAISA, IVANA ([id number]) on 11/28/2017 6:36:54 PM Referred By: Confirmed By:IVANA KLINE MD
[2017-11-29] MEDS: ACETAMINOPHEN 325 MG TABLET (FP) PO PRN ×2 (06:26→20:44)
[2017-11-29] MEDS: DOCUSATE SODIUM 100 MG CAPSULE (FP) PO SCH ×3 (06:26→20:45)
[2017-11-29] MEDS: HEPARIN NA (PORCINE) 5,000 UNITS/ML 1ML VIAL SQ SCH ×3 (06:27→20:45)
[2017-11-29 07:17] LABS: HEMATOCRIT 27.4 % (35.4-49); HEMOGLOBIN 8.7 GM/dL (11.7-16.9); MCH 22.1 pg (25.7-33.7); MCHC 31.8 g/dl (32.0-35.9); MEAN CELL VOLUME 69.6 fl (80-96); MEAN PLT VOLUME 7.6 fl (7.5-11.1); PLATELET COUNT 221 K/MM3 (134-434); RBC 3.95 M/mm3 (4.00-5.60); RDW 18.7 % (11.9-15.9); WHITE BLOOD COUNT 4.8 K/mm3 (4.0-10.0)
--- NOTE | 2017-11-29 08:06 | PN ---
Progress Note, Physician Chief Complaint: ID Urology note seen Ceftriaxone AFEBRILE - Current Medication List Current Medications: Active Medications Acetaminophen (Tylenol -) 650 mg PO Q6H PRN PRN Reason: fever Last Admin: 11/29/17 06:26 Dose: 650 mg Docusate Sodium (Colace -) 100 mg PO TID [facility] Last Admin: 11/29/17 06:26 Dose: 100 mg Heparin Sodium (Porcine) (Heparin -) 5,000 unit SQ TID [facility] Last Admin: 11/29/17 06:27 Dose: 5,000 unit CEFTRIAXONE IN IS-OSM DEXTROSE (Ceftriaxone 2 Gm-D5w Bag) 2 gm in 50 mls @ 100 mls/hr IVPB DAILY [facility] Last Admin: 11/28/17 11:04 Dose: 100 mls/hr Levofloxacin (Levaquin 500 Mg Premixed Ivpb -) 500 mg in 100 mls @ 100 mls/hr IVPB DAILY [facility] Pantoprazole Sodium (Protonix -) 40 mg PO DAILY [facility] Last Admin: 11/28/17 09:11 Dose: 40 mg Polyethylene Glycol (Miralax (For Daily Use) -) 17 gm PO DAILY [facility] Last Admin: 11/28/17 09:10 Dose: 17 grams Potassium Chloride (K-Dur -) 40 meq PO BID [facility] Last Admin: 11/28/17 22:05 Dose: 40 meq Tamsulosin HCl (Flomax -) 0.8 mg PO DAILY@0830 [facility] Last Admin: 11/28/17 09:10 Dose: 0.8 mg - Objective Vital Signs: Vital Signs Temperature 98.3 F 11/29/17 06:00 Pulse Rate 89 11/29/17 06:00 Respiratory Rate 18 11/29/17 06:00 Blood Pressure 143/85 11/29/17 06:00 O2 Sat by Pulse Oximetry (%) 95 11/28/17 21:00 Constitutional: Yes: Well Nourished, No Distress HENT: Yes: WNL, Atraumatic Neck: Yes: WNL, Supple Cardiovascular: Yes: Regular Rate and Rhythm, S1, S2 Respiratory: Yes: WNL, Regular, CTA Bilaterally Gastrointestinal: Yes: WNL, Normal Bowel Sounds, Soft. No: Tenderness Genitourinary: Yes: Other (Mild swelling tenderness left test) Labs: CBC, BMP 11/29/17 06:25 11/28/17 05:05 INR, PTT INR 1.43 (0.82-1.09) H 11/25/17 12:30 Assessment/Plan Microbiology 11/24/17 22:20 Blood - Peripheral Venous Blood Culture - Final Escherichia Coli 11/24/17 22:20 Blood - Peripheral Venous Blood Culture - Final Escherichia Coli 11/24/17 20:20 Urine - Urine Clean Catch Urine Culture - Final Escherichia Coli Laboratory Tests 11/27/17 11/28/17 11/29/17 21:00 05:05 06:25 WBC 4.8 Hgb 8.7 L D Hct 27.4 L D Plt Count 221 Potassium 2.8 L* BUN 6 L D Creatinine 0.8 Assessment E Coli bacteremia ascending infection from the prostate epididymitis to kidneys Urinary retension BPH Clinically improved Plan Organism sensitive to quinolones so could switch to Levofloxacin 500mg daily to finish Kindly recall as needed Fitz BENITEZ
[2017-11-29 08:22] LABS: ALBUMIN 2.5 g/dl (3.4-5.0); ANION GAP 8 (8-16); BILIRUBIN,TOTAL 0.3 mg/dL (0.2-1.0); BLOOD UREA NITROGEN 6 mg/dL (7-18); CALCIUM 7.5 mg/dL (8.5-10.1); CHLORIDE 103 mmol/L (98-107); CO2 28 mmol/L (21-32); CREATININE 0.8 mg/dL (0.7-1.3); GLUCOSE,RANDOM 114 mg/dL (74-106); MAGNESIUM 2.2 mg/dL (1.8-2.4); POTASSIUM 3.9 mmol/L (3.5-5.1); SGOT/AST 75 U/L (15-37); SGPT/ALT 47 U/L (12-78); SODIUM 139 mmol/L (136-145); TOT PROT 6.2 g/dl (6.4-8.2)
[2017-11-29 08:23] LABS: ALK PHOS 58 U/L (45-117)
[2017-11-29] MEDS: PANTOPRAZOLE 40 MG TABLET (FP) PO SCH (09:03)
[2017-11-29] MEDS: POTASSIUM CHLORIDE TABS 20 MEQ TABLET.ER (FP) PO SCH ×2 (09:03→20:45)
[2017-11-29] MEDS: TAMSULOSIN HCL 0.4 MG CAP.ER.24H (FP) PO SCH (09:03)
[2017-11-29] MEDS: POLYETHYLENE GLYCOL 3350 119 GM BTL PO SCH (09:05)
[2017-11-29 09:23] LABS: MEAN PLT VOLUME 7.9 fl (7.5-11.1); WHITE BLOOD COUNT 4.9 K/mm3 (4.0-10.0)
[2017-11-29 09:27] LABS: HEMATOCRIT 27.3 % (35.4-49); HEMOGLOBIN 8.6 GM/dL (11.7-16.9); MCH 22.2 pg (25.7-33.7); MCHC 31.6 g/dl (32.0-35.9); MEAN CELL VOLUME 70.1 fl (80-96); PLATELET COUNT 222 K/MM3 (134-434); RBC 3.89 M/mm3 (4.00-5.60); RDW 18.8 % (11.9-15.9)
[2017-11-29 09:37] LABS: PHOSPHOROUS 1.3 mg/dL (2.5-4.9)
--- NOTE | 2017-11-29 10:16 | PN ---
Physical Exam: SUBJECTIVE: Patient seen and examined at the bedside. feeling better, scrotal pain resolved states he was slightly short of breath last night with ambulation, not short of breath now. No chest pain. OBJECTIVE: chest xray now Vital Signs Period Temp Pulse Resp BP Sys/Simpson Pulse Ox Last 24 Hr 98.1 F-99.2 F 84-97 18-20 100-143/71-85 95 GENERAL: The patient is awake, alert, and fully oriented, in no acute distress. HEAD: Normal with no signs of trauma. EYES: PERRL, extraocular movements intact, sclera anicteric, conjunctiva clear. No ptosis. ENT: Ears normal, nares patent, oropharynx clear without exudates, moist mucous membranes. NECK: Trachea midline, full range of motion, supple. LUNGS: Breath sounds equal, crackles at the bases right > left HEART: Regular rate and rhythm 90s ABDOMEN: soft, mildly distended, + bowel sounds, + pain on lower quadrants EXTREMITIES: 2+ pulses, warm, well-perfused, no edema. NEUROLOGICAL: Normal speech, gait not observed. PSYCH: Normal mood, normal affect. SKIN: Warm, dry, normal turgor, no rashes or lesions noted Laboratory Results - last 24 hr 11/29/17 11/29/17 11/29/17 06:25 06:25 08:00 WBC 4.8 4.9 RBC 3.95 L 3.89 L Hgb 8.7 L D 8.6 L Hct 27.4 L D 27.3 L MCV 69.6 L 70.1 L MCH 22.1 L 22.2 L MCHC 31.8 L 31.6 L RDW 18.7 H 18.8 H Plt Count 221 222 MPV 7.6 7.9 Neutrophils % No Result Required. Lymphocytes % No Result Required. PTT (Actin FS) 27.6 Sodium Potassium Chloride Carbon Dioxide Anion Gap BUN Creatinine Creat Clearance w eGFR Random Glucose Calcium Phosphorus Magnesium Total Bilirubin AST ALT Alkaline Phosphatase Total Protein Albumin 11/29/17 11/29/17 08:00 08:00 WBC RBC Hgb Hct MCV MCH MCHC RDW Plt Count MPV Neutrophils % Lymphocytes % PTT (Actin FS) Sodium 139 Potassium 3.9 Chloride 103 Carbon Dioxide 28 Anion Gap 8 BUN 6 L Creatinine 0.8 Creat Clearance w eGFR > 60 Random Glucose 114 H Calcium 7.5 L Phosphorus 1.3 L Cancelled Magnesium 2.2 D Total Bilirubin 0.3 D AST 75 H D ALT 47 D Alkaline Phosphatase 58 Total Protein 6.2 L Albumin 2.5 L Active Medications Generic Name Dose Route Start Last Admin Trade Name Freq PRN Reason Stop Dose Admin Acetaminophen 650 mg 11/25/17 22:37 11/29/17 06:26 Tylenol - PO 650 mg Q6H PRN Administration fever Docusate Sodium 100 mg 11/26/17 14:00 11/29/17 06:26 Colace - PO 100 mg TID BROOKE Administration Heparin Sodium (Porcine) 5,000 unit 11/25/17 22:00 11/29/17 06:27 Heparin - SQ 5,000 unit TID [facility] Administration CEFTRIAXONE IN IS-OSM DEXTROSE 2 gm in 50 mls @ 100 mls/hr 11/28/17 10:00 11:04 Ceftriaxone 2 Gm-D5w Bag IVPB 100 mls/hr DAILY [facility] Administration Levofloxacin 500 mg in 100 mls @ 100 mls/hr 11/29/17 10:00 11/29/17 09:03 Levaquin 500 Mg Premixed Ivpb - IVPB 100 mls/hr DAILY [facility] Administration Pantoprazole Sodium 40 mg 11/26/17 11:00 11/29/17 09:03 Protonix - PO 40 mg DAILY [facility] Administration Polyethylene Glycol 17 gm 11/26/17 11:00 11/29/17 09:05 Miralax (For Daily Use) - PO Not Given DAILY [facility] Potassium Chloride 40 meq 11/28/17 10:00 11/29/17 09:03 K-Dur - PO 40 meq BID [facility] Administration Tamsulosin HCl 0.8 mg 11/27/17 10:30 11/29/17 09:03 Flomax - PO 0.8 mg DAILY@0830 [facility] Administration ASSESSMENT/PLAN: Patient is a 62 year old male with a significant past medical history of hypertension and BPH. He presented to the ED on 11/25/2017 with dysuria and found to have positive blood cultures, NELY and hypocalcemia. A dodson was placed on admission for urinary retention. Further admission labs and workup showed patient to have a WBC of 19.6, lactic acidosis at 6.6, creatinine of 1.[address] scan of abdomen: development of bilateral pleural effusions, right > left with compression atelectasis vs. consolidation. possible collection anterior to the right psoas muscle with inflammatory changes. Renal infection cannot be excluded. ID: Sepsis/urosepsis/Bacteremia Blood cultures 11/24 + lactobacillus, repeat BC ngtd, urine cultures negative Started Ceftriaxone as per ID, On Levaquin as per urology Monitor labs, vitals, no fevers x 24 hours ID following Persistent lactic acidosis, resolved Pulmonary Bilateral pleural effusions, as seen on CT Patient has received fluid resuscitation for hypotension and sepsis Monitor output Hold off on diuretics at this time Repeat chest xray today Cardiology: Hypertension, controlled Monitor in the setting of sepsis BP stable Renal: UTI/Dysuria/Prostititis/BPH UC no growth Dodson catheter present with clear urine On Flomax 0.8mg Urology following, notes reviewed: levaquin initiated F.E.N. Fluids: discontinue ivf for fluid overload, encourage PO intake Electrolytes: repeat labs in a.m. Nutrition: low sodium Prophy: Heparin TID, GI: Protonix full code
[2017-11-29] MEDS: CEFTRIAXONE IN IS-OSM DEXTROSE 2 GM/50 ML BAG IVPB SCH (11:00)
[2017-11-29 11:46] LABS: PLATELET ESTIMATE NORMAL; TARGET CELLS 2+; TEAR DROP CELLS 1+
--- NOTE | 2017-11-29 13:10 | PN ---
Progress Note (short form) - Note Progress Note: Renal follow up for NELY Pt seen and examined at the bedside feels much better today no sob, chest pain, abd pain low grade fever this scrotal and rectal discomfort now resolved Vital Signs Temperature 98.3 F 11/29/17 10:00 Pulse Rate 88 11/29/17 10:00 Respiratory Rate 20 11/29/17 10:00 Blood Pressure 125/72 11/29/17 10:00 O2 Sat by Pulse Oximetry (%) 97 11/29/17 09:00 Intake & Output 11/26/17 11/27/17 11/28/17 11/29/17 23:59 23:59 23:59 23:59 Intake Total 6340 1080 1100 440 Output Total 3600 3800 3200 1000 Balance 2740 -2720 -2100 -560 NAD RRR, No M/R CTA soft NT/ND No LE edema CBC, BMP 11/29/17 08:00 11/29/17 08:00 Current Medications Acetaminophen (Tylenol -) 650 mg PO Q6H PRN PRN Reason: fever Last Admin: 11/29/17 06:26 Dose: 650 mg Docusate Sodium (Colace -) 100 mg PO TID [facility] Last Admin: 11/29/17 06:26 Dose: 100 mg Ergocalciferol (Drisdol Oral Solution -) 8,000 units PO DAILY [facility] Heparin Sodium (Porcine) (Heparin -) 5,000 unit SQ TID [facility] Last Admin: 11/29/17 06:27 Dose: 5,000 unit CEFTRIAXONE IN IS-OSM DEXTROSE (Ceftriaxone 2 Gm-D5w Bag) 2 gm in 50 mls @ 100 mls/hr IVPB DAILY [facility] Last Admin: 11/29/17 11:00 Dose: 100 mls/hr Levofloxacin (Levaquin 500 Mg Premixed Ivpb -) 500 mg in 100 mls @ 100 mls/hr IVPB DAILY [facility] Last Admin: 11/29/17 09:03 Dose: 100 mls/hr Potassium Phosphate 30 mm/ (Sodium Chloride) 260 mls @ 62.5 mls/hr IVPB ONCE ONE Stop: 11/29/17 17:15 Pantoprazole Sodium (Protonix -) 40 mg PO DAILY [facility] Last Admin: 11/29/17 09:03 Dose: 40 mg Polyethylene Glycol (Miralax (For Daily Use) -) 17 gm PO DAILY [facility] Last Admin: 11/29/17 09:05 Dose: Not Given Potassium Chloride (K-Dur -) 40 meq PO BID [facility] Last Admin: 11/29/17 09:03 Dose: 40 meq Tamsulosin HCl (Flomax -) 0.8 mg PO DAILY@0830 [facility] Last Admin: 11/29/17 09:03 Dose: 0.8 mg 62 year old gentleman with PMhx of Hypertension, remote hx of BPH (was on flomax previosuly) who presented to the ED with UTI symptoms and found to have + blood culture with NELY and hypocalcemia. #Acute Kidney Injury in setting of Bacteremia/UTI with ARB/Diuretics renal function improved and stable #UTI/Bacteremia/Prostatits/Testicular Pain/Urinary retention continue Levaquin as per ID Urology to evalulate for possible prostate proedure maintain dodson as per urology #Hypophosphatemia given IV K-phos again today start oral Vit d supplementation Ramez Chicas DO
[2017-11-29] MEDS ORDERED: POTASSIUM PHOSPHATE 30 MM in SODIUM CHLORIDE 500 ML IVPB ONE (13:45)
[2017-11-29] MEDS: ERGOCALCIFEROL 8,000 UNITS/ML DROPSBTL PO SCH (18:38)
[2017-11-30] MEDS: HEPARIN NA (PORCINE) 5,000 UNITS/ML 1ML VIAL SQ SCH ×2 (01:48→05:43)
[2017-11-30] MEDS: DOCUSATE SODIUM 100 MG CAPSULE (FP) PO SCH ×4 (01:48→21:56)
[2017-11-30] MEDS: POTASSIUM CHLORIDE TABS 20 MEQ TABLET.ER (FP) PO SCH ×2 (01:49→09:33)
[2017-11-30] MEDS: ACETAMINOPHEN 325 MG TABLET (FP) PO PRN ×2 (05:43→23:44)
[2017-11-30 09:18] LABS: BASO % 0.4 % (0-2.0); EOS % 3.3 % (0-4.5); HEMATOCRIT 24.7 % (35.4-49); HEMOGLOBIN 7.9 GM/dL (11.7-16.9); LYMPH % 30.7 % (8-40); MCH 22.1 pg (25.7-33.7); MCHC 31.8 g/dl (32.0-35.9); MEAN CELL VOLUME 69.4 fl (80-96); MEAN PLT VOLUME 7.7 fl (7.5-11.1); MONO % 21.7 % (3.8-10.2); NEUT % 43.9 % (42.8-82.8); PLATELET COUNT 263 K/MM3 (134-434); RBC 3.56 M/mm3 (4.00-5.60); RDW 19.2 % (11.9-15.9); WHITE BLOOD COUNT 5.9 K/mm3 (4.0-10.0)
[2017-11-30 09:28] LABS: ALBUMIN 2.3 g/dl (3.4-5.0); ANION GAP 8 (8-16); BILIRUBIN,TOTAL 0.3 mg/dL (0.2-1.0); BLOOD UREA NITROGEN 6 mg/dL (7-18); CALCIUM 8.1 mg/dL (8.5-10.1); CHLORIDE 105 mmol/L (98-107); CO2 25 mmol/L (21-32); CREATININE 0.8 mg/dL (0.7-1.3); GLUCOSE,RANDOM 105 mg/dL (74-106); MAGNESIUM 2.1 mg/dL (1.8-2.4); POTASSIUM 4.6 mmol/L (3.5-5.1); SGOT/AST 136 U/L (15-37); SGPT/ALT 107 U/L (12-78); SODIUM 138 mmol/L (136-145); TOT PROT 5.9 g/dl (6.4-8.2)
[2017-11-30 09:29] LABS: ALK PHOS 62 U/L (45-117)
[2017-11-30] MEDS: TAMSULOSIN HCL 0.4 MG CAP.ER.24H (FP) PO SCH (09:32)
[2017-11-30] MEDS: PANTOPRAZOLE 40 MG TABLET (FP) PO SCH (09:32)
[2017-11-30] MEDS: ERGOCALCIFEROL 8,000 UNITS/ML DROPSBTL PO SCH (09:33)
[2017-11-30] MEDS: POLYETHYLENE GLYCOL 3350 119 GM BTL PO SCH (09:40)
[2017-11-30] MEDS ORDERED: POTASSIUM CHLORIDE TABS 20 MEQ TABLET.ER (FP) PO SCH (10:00)
[2017-11-30] MEDS ORDERED: BENZOCAINE 28 GM HEMORRHOIDAL OINTMENT PR ONE (10:25)
[2017-11-30] MEDS ORDERED: WITCH HAZEL 50% (TUCKS) 40 PAD/JAR PAD TP ONE (10:26)
--- NOTE | 2017-11-30 10:29 | PN ---
Physical Exam: SUBJECTIVE: Patient seen and examined at the bedside. Feels better, still having headaches. Had episode of hemorrhoid bleeding overnight. States his legs are slightly swollen. Still has a headache relieved with Tylenol OBJECTIVE: Patient has been given 24 hours notice regarding discharge. For discharge tomorrow, discharge order in, medications called in. Follow up appointments made for headache, tylenol prn, ct scan of head negative for hemorrhoid bleeding, chronic: hemorrhoid suppositories for lower ext +1 ankle edema, elevate legs, + pulses Spoke to Dr. Jauregui, patient can go home with Levaquin 500mg PO x 10 days and continue dodson. Dr. Jauregui does not take patient's insurance, therefore patient has follow appointment with Dr. Giraldo, his urologist tomorrow 12/01/2017 @ 9am (Dr. Giraldo). Family requested Dr. Armstrong, I called and made appointment for Appointment made for [facility]: [phone] Wednesday 11:30a.m. Patient to go home with leg bag. RN to teach patient how to drain and change leg bag. Vital Signs Period Temp Pulse Resp BP Sys/Simpson Pulse Ox Last 24 Hr 98.3 F-98.9 F 84-98 20-20 127-141/74-91 97 GENERAL: The patient is awake, alert, and fully oriented, in no acute distress. HEAD: Normal with no signs of trauma. EYES: PERRL, extraocular movements intact, sclera anicteric, conjunctiva clear. No ptosis. ENT: Ears normal, nares patent, oropharynx clear without exudates, moist mucous membranes. NECK: Trachea midline, full range of motion, supple. LUNGS: Breath sounds equal, diminished at the bases HEART: Regular rate and rhythm 90s ABDOMEN: soft, + bowel sounds, no pain on lower quadrants EXTREMITIES: 2+ pulses, warm, well-perfused, +1 pitting ankle edema bilateral, patient instructed to elevated legs NEUROLOGICAL: Normal speech, steady gait PSYCH: Normal mood, normal affect. SKIN: Warm, dry, normal turgor, no rashes or lesions noted Laboratory Results - last 24 hr 11/29/17 11/30/17 11/30/17 08:00 06:21 06:21 WBC 5.9 RBC 3.56 L Hgb 7.9 L Hct 24.7 L MCV 69.4 L MCH 22.1 L MCHC 31.8 L RDW 19.2 H Plt Count 263 MPV 7.7 Neutrophils % 43.9 Neutrophils % (Manual) 51.8 Band Neutrophils % 0.0 Lymphocytes % 30.7 D Lymphocytes % (Manual) 22.9 Monocytes % 21.7 H Monocytes % (Manual) 16 H* Eosinophils % 3.3 Eosinophils % (Manual) 4.8 H Basophils % 0.4 Basophils % (Manual) 1.2 Myelocytes % (Man) 1 Promyelocytes % (Man) 0 Nucleated RBC % 0 Metamyelocytes 0 Hypochromia 2+ Platelet Estimate Normal Microcytosis 2+ Target Cells 2+ Tear Drop Cells 1+ Sodium 138 Potassium 4.6 Chloride 105 Carbon Dioxide 25 Anion Gap 8 BUN 6 L Creatinine 0.8 Creat Clearance w eGFR > 60 Random Glucose 105 Calcium 8.1 L Magnesium 2.1 Total Bilirubin 0.3 AST 136 H D ALT 107 H D Total Protein 5.9 L Albumin 2.3 L Active Medications Generic Name Dose Route Start Last Admin Trade Name Freq PRN Reason Stop Dose Admin Acetaminophen 650 mg 11/25/17 22:37 11/30/17 05:43 Tylenol - PO 650 mg Q6H PRN Administration fever Benzocaine 1 applic 11/30/17 10:25 Americaine Ointment - PA 11/30/17 10:26 ONCE ONE Docusate Sodium 100 mg 11/26/17 14:00 11/30/17 05:43 Colace - PO 100 mg TID [facility]OOKE Administration Ergocalciferol 8,000 units 11/29/17 13:15 11/30/17 09:33 Drisdol Oral Solution - PO 8,000 units DAILY [facility] Administration Levofloxacin 500 mg in 100 mls @ 100 mls/hr 11/29/17 10:00 11/30/17 09:33 Levaquin 500 Mg Premixed Ivpb - IVPB 100 mls/hr DAILY [facility] Administration Pantoprazole Sodium 40 mg 11/26/17 11:00 11/30/17 09:32 Protonix - PO 40 mg DAILY [facility] Administration Polyethylene Glycol 17 gm 11/26/17 11:00 11/30/17 09:40 Miralax (For Daily Use) - PO 17 grams DAILY [facility] Administration Tamsulosin HCl 0.8 mg 11/27/17 10:30 11/30/17 09:32 Flomax - PO 0.8 mg DAILY@0830 [facility] Administration Witch Teressa/Glycerin 1 pad 11/30/17 10:26 Tucks Pads - TP 11/30/17 10:27 ONCE ONE ASSESSMENT/PLAN: Patient is a 62 year old male with a significant past medical history of hypertension and BPH. He presented to the ED on 11/25/2017 with dysuria and found to have positive blood cultures, NELY and hypocalcemia. A dodson was placed on admission for urinary retention. Further admission labs and workup showed patient to have a WBC of 19.6, lactic acidosis at 6.6, creatinine of 1.[address] scan of abdomen: development of bilateral pleural effusions, right > left with compression atelectasis vs. consolidation. possible collection anterior to the right psoas muscle with inflammatory changes. Renal infection cannot be excluded. Chest xray 11/29: no evidence of pleural effusions Scrotal ultrasound 11/29, normal findings : ID: Severe Sepsis/urosepsis/Bacteremia, resolved Prostatitis, Epididymitis, improving Urinary retention due to benign prostatic hyperplasia, to be d/c with dodson Blood cultures 11/24 + lactobacillus, repeat BC ngtd, urine cultures negative Treated with Meropenem during hospitalization, then switched to ceftriaxone and Levqauin (both IV) As per ID and Urology, patient to go home on Levaquin 500mg PO x 10 days Patient has follow up urology appointments as detailed above Dr. Jauregui informed me that they do not take patient's insurance Dodson catheter present with clear urine On Flomax 0.8mg Patient to go home with dodson/leg bag to follow up with urology (appointments made by publications writer as detailed above) Persistent lactic acidosis, resolved Pulmonary Bilateral pleural effusions, as seen on CT Repeat chest xray with no evidence of pleural effusions Cardiology: Hypertension, controlled BP stable Neuro: Headaches, acute on chronic Patient states no relief of headaches since admission Head CT negative Tylenol helps Disposition: full code
[2017-11-30 12:39] LABS: BASO % 0.7 % (0-2.0); EOS % 2.2 % (0-4.5); HEMATOCRIT 26.7 % (35.4-49); HEMOGLOBIN 8.3 GM/dL (11.7-16.9); LYMPH % 33.2 % (8-40); MCH 21.8 pg (25.7-33.7); MCHC 31.2 g/dl (32.0-35.9); MEAN CELL VOLUME 69.8 fl (80-96); MEAN PLT VOLUME 7.3 fl (7.5-11.1); MONO % 25.1 % (3.8-10.2); NEUT % 38.8 % (42.8-82.8); PLATELET COUNT 264 K/MM3 (134-434); RBC 3.82 M/mm3 (4.00-5.60); RDW 18.7 % (11.9-15.9); WHITE BLOOD COUNT 5.7 K/mm3 (4.0-10.0)
[2017-11-30 13:30] LABS: PHOSPHOROUS 2.8 mg/dL (2.5-4.9)
[2017-11-30] MEDS: NAPH,MB-DB/K PH,MBDB POWDER PACKET PO SCH ×2 (14:31→21:56)
--- NOTE | 2017-11-30 16:47 | DS ---
Physical Exam: SUBJECTIVE: Patient seen and examined at the bedside. Feels better, still having headaches. Had episode of hemorrhoid bleeding overnight. States his legs are slightly swollen. Still has a headache relieved with Tylenol OBJECTIVE: Patient has been given 24 hours notice regarding discharge. For discharge tomorrow, discharge order in, medications called in. Follow up appointments made for headache, tylenol prn, ct scan of head negative for hemorrhoid bleeding, chronic: hemorrhoid suppositories: CBC STABLE for lower ext +1 ankle edema, elevate legs, + pulses Spoke to Dr. Jauregui, patient can go home with Levaquin 500mg PO x 10 days and continue [address]. Dr. Jauregui does not take patient's insurance, therefore patient has follow appointment with Dr. Giraldo, his urologist tomorrow 12/01/2017 @ 9am (Dr. Giraldo). Family requested Dr. Armstrong, I called and made appointment for Appointment made for [facility]: [phone] Wednesday 11:30a.m. Patient to go home with leg bag. RN to teach patient how to drain and change leg bag. Vital Signs Period Temp Pulse Resp BP Sys/Simpson Pulse Ox Last 24 Hr 98 F-98.9 F 84-98 16-20 127-150/76-91 97-97 PHYSICAL EXAM GENERAL: The patient is awake, alert, and fully oriented, in no acute distress. HEAD: Normal with no signs of trauma. EYES: PERRL, extraocular movements intact, sclera anicteric, conjunctiva clear. No ptosis. ENT: Ears normal, nares patent, oropharynx clear without exudates, moist mucous membranes. NECK: Trachea midline, full range of motion, supple. LUNGS: Breath sounds equal, diminished at the bases HEART: Regular rate and rhythm 90s ABDOMEN: soft, + bowel sounds, no pain on lower quadrants EXTREMITIES: 2+ pulses, warm, well-perfused, +1 pitting ankle edema bilateral, patient instructed to elevated legs NEUROLOGICAL: Normal speech, steady gait PSYCH: Normal mood, normal affect. SKIN: Warm, dry, normal turgor, no rashes or lesions noted LABS Laboratory Results - last 24 hr 11/30/17 11/30/17 11/30/17 06:21 06:21 06:21 WBC 5.9 RBC 3.56 L Hgb 7.9 L Hct 24.7 L MCV 69.4 L MCH 22.1 L MCHC 31.8 L RDW 19.2 H Plt Count 263 MPV 7.7 Neutrophils % 43.9 Lymphocytes % 30.7 D Monocytes % 21.7 H Eosinophils % 3.3 Basophils % 0.4 Sodium 138 Potassium 4.6 Chloride 105 Carbon Dioxide 25 Anion Gap 8 BUN 6 L Creatinine 0.8 Creat Clearance w eGFR > 60 Random Glucose 105 Calcium 8.1 L Phosphorus 2.8 D Cancelled Magnesium 2.1 Total Bilirubin 0.3 AST 136 H D ALT 107 H D Alkaline Phosphatase 62 Total Protein 5.9 L Albumin 2.3 L 11/30/17 12:08 WBC 5.7 RBC 3.82 L Hgb 8.3 L Hct 26.7 L MCV 69.8 L MCH 21.8 L MCHC 31.2 L RDW 18.7 H Plt Count 264 MPV 7.3 L Neutrophils % 38.8 L Lymphocytes % 33.2 Monocytes % 25.1 H Eosinophils % 2.2 Basophils % 0.7 Sodium Potassium Chloride Carbon Dioxide Anion Gap BUN Creatinine Creat Clearance w eGFR Random Glucose Calcium Phosphorus Magnesium Total Bilirubin AST ALT Alkaline Phosphatase Total Protein Albumin HOSPITAL COURSE: Date of Admission:11/25/17 Date of Discharge: 12/01/17 ASSESSMENT/PLAN: Patient is a 62 year old male with a significant past medical history of hypertension and BPH. He presented to the ED on 11/25/2017 with dysuria and found to have positive blood cultures, NLEY and hypocalcemia. A dodson was placed on admission for urinary retention. Further admission labs and workup showed patient to have a WBC of 19.6, lactic acidosis at 6.6, creatinine of 1.[address] scan of abdomen: development of bilateral pleural effusions, right > left with compression atelectasis vs. consolidation. possible collection anterior to the right psoas muscle with inflammatory changes. Renal infection cannot be excluded. Chest xray 11/29: no evidence of pleural effusions Scrotal ultrasound 11/29, normal findings : ID: Severe Sepsis/urosepsis/Bacteremia, resolved Prostatitis, Epididymitis, improving Urinary retention due to benign prostatic hyperplasia, to be d/c with dodson Blood cultures 11/24 + lactobacillus, repeat BC ngtd, urine cultures negative Treated with Meropenem during hospitalization, then switched to ceftriaxone and Levqauin (both IV) As per ID and Urology, patient to go home on Levaquin 500mg PO x 10 days Patient has follow up urology appointments as detailed above Dr. Jauregui informed me that they do not take patient's insurance Dodson catheter present with clear urine On Flomax 0.8mg Patient to go home with dodson/leg bag to follow up with urology (appointments made by health science writer as detailed above) Persistent lactic acidosis, resolved Pulmonary Bilateral pleural effusions, as seen on CT Repeat chest xray with no evidence of pleural effusions Cardiology: Hypertension, controlled BP stable Neuro: Headaches, acute on chronic Patient states no relief of headaches since admission Head CT negative Tylenol helps Disposition: full code Minutes to complete discharge: 60 Discharge Summary Reason For Visit: PROSTATITIS Current Active Problems Epididymitis, left (Acute) Prostatitis (Acute) Sepsis (Acute) Urinary retention due to benign prostatic hyperplasia (Acute) Condition: Improved - Instructions Diet, Activity, Other Instructions: Mr. Barrios: You will be discharged on 12/01/2017. Please continue the antibiotics of Levaquin 500mg daily for 10 more days. These antibiotics have been called [facility] pharmacy [facility]) Please call us with any questions that you may have. Kaya Coto, [facility] [phone] Referrals: Jean Elliott MD [Primary Care Provider] - 1 Week Ramez hCicas MD [Staff Physician] - (1 week) Disposition: HOME - Home Medications Comprehensive Discharge Medication List: Ambulatory Orders Levofloxacin [Levaquin] 500 mg PO DAILY #10 tablet 11/30/17 This patient is new to me today: No Emergency Visit: Yes ED Registration Date: 11/25/17 Care time: The patient presented to the Emergency Department on the above date and was hospitalized for further evaluation of their emergent condition. Critical Care patient: No - Discharge Referral Referred to [facility] No
[2017-12-01] MEDS: DOCUSATE SODIUM 100 MG CAPSULE (FP) PO SCH (05:51)
[2017-12-01] MEDS ORDERED: PT OWN MED DRAWER 7, Y5N ONE (08:48)
[2017-12-01] MEDS: TAMSULOSIN HCL 0.4 MG CAP.ER.24H (FP) PO SCH (08:55)
[2017-12-01] MEDS: PANTOPRAZOLE 40 MG TABLET (FP) PO SCH (08:59)
[2017-12-01] MEDS: ERGOCALCIFEROL 8,000 UNITS/ML DROPSBTL PO SCH (08:59)
[2017-12-01] MEDS: POLYETHYLENE GLYCOL 3350 119 GM BTL PO SCH (08:59)
[2017-12-01] MEDS: NAPH,MB-DB/K PH,MBDB POWDER PACKET PO SCH (09:01)
[2017-12-01 09:20] VITALS: BP 134/82; PULSE 89; TEMP 98
[2017-12-01] MEDS: ACETAMINOPHEN 325 MG TABLET (FP) PO PRN (09:32)
[2017-12-02] MEDS ORDERED: LOSARTAN POTASSIUM 50 MG TABLET (FP) PO SCH (10:00)
[2017-12-02] MEDS ORDERED: CHLORTHALIDONE 25 MG TABLET PO SCH (10:00)
[2017-12-02] MEDS ORDERED: ATENOLOL 50 MG TABLET (FP) PO SCH (10:00)
== END 2017-12-01 14:44 | disposition home or self-care (01) | DRG 720 ==
LOC: JER 11:12 → JERBED 13:29 → J4W 21:58 → J6S 11-30 13:19
PROVIDERS: ADMIT Internal Medicine; ATTEND Nurse Practitioner Acute Care
DX: A41.50 Gram-negative sepsis, unspecified (principal); E87.2 Acidosis; I95.89 Other hypotension; N17.9 Acute kidney failure, unspecified; E87.1 Hypo-osmolality and hyponatremia; I10 Essential (primary) hypertension; E83.51 Hypocalcemia; N39.0 Urinary tract infection, site not specified; J90 Pleural effusion, not elsewhere classified; J98.11 Atelectasis; R51 Headache; E87.6 Hypokalemia; E83.39 Other disorders of phosphorus metabolism; N41.8 Other inflammatory diseases of prostate; N15.8 Other specified renal tubulo-interstitial diseases; E83.42 Hypomagnesemia; N45.1 Epididymitis; R33.8 Other retention of urine; D72.828 Other elevated white blood cell count; N40.1 Benign prostatic hyperplasia with lower urinary tract symptoms; R65.21 Severe sepsis with septic shock
CPT/HCPCS: 36415; 70450-TC; 71045-TC-FY; 74176-TC; 76775-TC; 76870-TC; 80048; 80053; 81003; 81015; 82550; 82803; 83036; 83605; 83735; 83970; 84100; 84132; 84484; 85025; 85027; 85610; 85730; 86140; 86850; 86900; 86901; 87040; 87086; 93005; 93010; 94010; 97116-GP; 97161-GP; 99283-25; J1644

== ENCOUNTER 2023-09-16 00:18 | Inpatient (IN) | payer OTHER ==
[2023-09-16 00:35] VITALS: BMI 24.8
[2023-09-16] MEDS ORDERED: SODIUM CHLORIDE 1,000 ML IV STA ×3 (02:36→09:10)
[2023-09-16] MEDS ORDERED: ONDANSETRON 4 MG/2 ML VIAL IVPUSH ONE (02:36)
[2023-09-16] MEDS ORDERED: ONDANSETRON 4 MG/2 ML VIAL ONE (03:21)
[2023-09-16] MEDS ORDERED: ACETAMINOPHEN 1000 MG/100 ML BAG IVPB ONE (03:30)
[2023-09-16 03:52] LABS: HEMATOCRIT 38.7 % (35.4-49); HEMOGLOBIN 13.5 GM/dL (11.7-16.9); MCH 32.4 pg (25.7-33.7); MCHC 34.8 g/dl (32.0-35.9); MEAN CELL VOLUME 93.1 fl (80-96); PLATELET COUNT 232 10^3/uL (134-434); RBC 4.16 M/mm3 (4.00-5.60); RDW 13.8 % (11.9-15.9); WHITE BLOOD COUNT 13.2 K/mm3 (4.0-10.0)
[2023-09-16 03:54] LABS: EPI CELLS 4 /uL (0-25.1); HYALINE CASTS 1 /uL (0-3.1); PH,URINE 5.5 (5.0-8.0); URINE APPEARANCE Error; URINE BACTERIA 50 /uL (0-1359); URINE BILIRUBIN NEGATIVE (NEGATIVE); URINE COLOR DK YELLOW; URINE GLUCOSE (UA) NEGATIVE (NEGATIVE); URINE KETONE TRACE (NEGATIVE); URINE LEUK ESTERASE 3+ (NEGATIVE); URINE NITRITE NEGATIVE (NEGATIVE); URINE PROTEIN 1+ (NEGATIVE); URINE RBC 40 /uL (0-23.9); URINE WBC 2359 /uL (0-25.8)
[2023-09-16 04:09] LABS: CHLORIDE 92 mmol/L (98-107); SODIUM 132 mmol/L (136-145)
[2023-09-16 04:11] LABS: CALCIUM 8.2 mg/dL (8.5-10.1)
[2023-09-16 04:12] LABS: ALBUMIN 2.9 g/dl (3.4-5.0); BLOOD UREA NITROGEN 12.8 mg/dL (7-18); CO2 32 mmol/L (21-32); GLUCOSE,RANDOM 148 mg/dL (74-106)
[2023-09-16 04:15] LABS: CREATININE 1.2 mg/dL (0.55-1.3); SGOT/AST 17 U/L (15-37); SGPT/ALT 19 U/L (13-61)
[2023-09-16 04:17] LABS: BILIRUBIN,TOTAL 0.8 mg/dL (0.2-1); TOT PROT 6.7 g/dl (6.4-8.2)
[2023-09-16 04:18] LABS: ALK PHOS 67 U/L (45-117)
[2023-09-16 05:53] LABS: ANION GAP 8 mmol/L (4-13); POTASSIUM 2.9 mmol/L (3.5-5.1)
[2023-09-16] MEDS ORDERED: POTASSIUM CHLORIDE ORAL LIQUID 20 MEQ/15 ML PO ONE ×2 (06:00→09:14)
[2023-09-16 06:15] LABS: ANISOCYTOSIS 1+; MACROCYTOSIS 0
[2023-09-16] MEDS: SODIUM CHLORIDE 1,000 ML with POTASSIUM CHLORIDE 30 MEQ IV SCH ×2 (06:30→06:38)
[2023-09-16] MEDS ORDERED: SODIUM CHLORIDE 1,000 ML with POTASSIUM CHLORIDE 20 MEQ IV SCH (06:34)
[2023-09-16] MEDS ORDERED: POTASSIUM CHLORIDE TABS 10 MEQ TABLET.ER (FP) PO ONE (08:00)
[2023-09-16] MEDS ORDERED: POTASSIUM CHLORIDE TABS 20 MEQ TABLET.ER (FP) PO ONE (08:31)
[2023-09-16] MEDS ORDERED: FAMOTIDINE 20 MG TABLET ONE (08:32)
[2023-09-16] MEDS ORDERED: TAMSULOSIN HCL 0.4 MG CAP ONE (08:32)
[2023-09-16] MEDS: FAMOTIDINE 20 MG TABLET PO SCH (08:36)
[2023-09-16] MEDS: TAMSULOSIN HCL 0.4 MG CAP PO SCH (08:36)
[2023-09-16 08:40] LABS: LACTIC ACID 2.6 mmol/L (0.4-2.0)
[2023-09-16] MEDS ORDERED: POTASSIUM CHLORIDE ORAL LIQUID 20 MEQ/15 ML ONE (10:36)
[2023-09-16 14:28] LABS: POTASSIUM 3.8 mmol/L (3.5-5.1)
[2023-09-16 14:30] LABS: BLOOD UREA NITROGEN 9.9 mg/dL (7-18)
[2023-09-16 14:48] LABS: CALCIUM 7.9 mg/dL (8.5-10.1)
[2023-09-16] MEDS: SODIUM CHLORIDE 1,000 ML IV SCH (16:11)
[2023-09-16] MEDS ORDERED: ACETAMINOPHEN 325 MG TABLET (FP) ONE (16:12)
[2023-09-16] MEDS: ACETAMINOPHEN 325 MG TABLET (FP) PO PRN ×2 (16:13→22:10)
[2023-09-16] MEDS: ROSUVASTATIN CA 5 MG TABLET PO SCH (22:00)
[2023-09-17] MEDS: ACETAMINOPHEN 325 MG TABLET (FP) PO PRN ×2 (06:18→15:00)
[2023-09-17] MEDS: FINASTERIDE 5 MG TABLET (FP) PO SCH (09:51)
[2023-09-17] MEDS: FAMOTIDINE 20 MG TABLET PO SCH (09:51)
[2023-09-17] MEDS: TAMSULOSIN HCL 0.4 MG CAP PO SCH (09:51)
[2023-09-17] MEDS: SODIUM CHLORIDE 1,000 ML IV SCH (09:54)
[2023-09-17] MEDS ORDERED: CEFTRIAXONE 1 GM in DEXTROSE 5%-WATER - 50 ML IVPB SCH (10:00)
[2023-09-17] MEDS ORDERED: CEFTRIAXONE 1,000 MG in DEXTROSE 5%-WATER - 50 ML IVPB SCH (10:00)
[2023-09-17 10:37] LABS: HEMATOCRIT 35.3 % (35.4-49); HEMOGLOBIN 12.1 GM/dL (11.7-16.9); MCH 32.4 pg (25.7-33.7); MCHC 34.3 g/dl (32.0-35.9); MEAN CELL VOLUME 94.5 fl (80-96); MEAN PLT VOLUME 7.3 fl (7.5-11.1); PLATELET COUNT 234 10^3/uL (134-434); RBC 3.74 M/mm3 (4.00-5.60); RDW 13.6 % (11.9-15.9); WHITE BLOOD COUNT 5.6 K/mm3 (4.0-10.0)
[2023-09-17 11:18] LABS: POTASSIUM 3.4 mmol/L (3.5-5.1)
[2023-09-17 12:09] LABS: CALCIUM 8.1 mg/dL (8.5-10.1)
[2023-09-17 12:11] LABS: BLOOD UREA NITROGEN 8.2 mg/dL (7-18)
[2023-09-17 12:14] LABS: CREATININE 1.1 mg/dL (0.55-1.3)
[2023-09-17] MEDS ORDERED: POTASSIUM CHLORIDE TABS 20 MEQ TABLET.ER (FP) PO ONE (17:00)
[2023-09-17] MEDS: ROSUVASTATIN CA 5 MG TABLET PO SCH (22:10)
[2023-09-18] MEDS: ACETAMINOPHEN 325 MG TABLET (FP) PO PRN ×3 (01:17→22:38)
[2023-09-18] MEDS: FINASTERIDE 5 MG TABLET (FP) PO SCH (09:33)
[2023-09-18] MEDS: TAMSULOSIN HCL 0.4 MG CAP PO SCH (09:34)
[2023-09-18] MEDS: FAMOTIDINE 20 MG TABLET PO SCH (09:34)
[2023-09-18] MEDS: MEROPENEM 1 GM in DEXTROSE 5%-WATER 100 ML IVPB SCH ×2 (09:46→18:57)
[2023-09-18 10:47] LABS: BASO % 0.5 % (0-2.0); EOS % 1.2 % (0-4.5); HEMATOCRIT 36.9 % (35.4-49); HEMOGLOBIN 12.6 GM/dL (11.7-16.9); LYMPH % 25.8 % (8-40); MCH 32.1 pg (25.7-33.7); MCHC 34.1 g/dl (32.0-35.9); MEAN CELL VOLUME 94.4 fl (80-96); MEAN PLT VOLUME 7.1 fl (7.5-11.1); MONO % 12.1 % (3.8-10.2); NEUT % 60.4 % (42.8-82.8); PLATELET COUNT 250 10^3/uL (134-434); RBC 3.91 M/mm3 (4.00-5.60); RDW 13.9 % (11.9-15.9); WHITE BLOOD COUNT 4.3 K/mm3 (4.0-10.0)
[2023-09-18 10:53] LABS: CHLORIDE 102 mmol/L (98-107); POTASSIUM 3.4 mmol/L (3.5-5.1); SODIUM 139 mmol/L (136-145)
[2023-09-18 10:54] LABS: CALCIUM 8.4 mg/dL (8.5-10.1)
[2023-09-18 10:55] LABS: ALBUMIN 2.5 g/dl (3.4-5.0); ANION GAP 6 mmol/L (4-13); BLOOD UREA NITROGEN 7.8 mg/dL (7-18); CO2 32 mmol/L (21-32); GLUCOSE,RANDOM 190 mg/dL (74-106); MAGNESIUM 1.9 mg/dL (1.8-2.4)
[2023-09-18 10:58] LABS: SGOT/AST 24 U/L (15-37); SGPT/ALT 26 U/L (13-61)
[2023-09-18 10:59] LABS: BILIRUBIN,TOTAL 0.2 mg/dL (0.2-1); TOT PROT 5.9 g/dl (6.4-8.2)
[2023-09-18 11:01] LABS: ALK PHOS 59 U/L (45-117)
[2023-09-18 11:02] LABS: PHOSPHOROUS 1.1 mg/dL (2.5-4.9)
[2023-09-18] MEDS: NAPH,MB-DB/K PH,MBDB POWDER PACKET PO SCH ×3 (13:01→18:56)
[2023-09-18 17:17] LABS: POTASSIUM 3.4 mmol/L (3.5-5.1)
[2023-09-18 17:18] LABS: CALCIUM 7.7 mg/dL (8.5-10.1)
[2023-09-18 17:19] LABS: BLOOD UREA NITROGEN 7.3 mg/dL (7-18)
[2023-09-18 17:22] LABS: CREATININE 0.9 mg/dL (0.55-1.3); PHOSPHOROUS 1.4 mg/dL (2.5-4.9)
[2023-09-18] MEDS ORDERED: MEROPENEM 1 GM in DEXTROSE 5%-WATER 100 ML IVPB SCH (18:00)
[2023-09-18] MEDS ORDERED: POTASSIUM CHLORIDE TABS 20 MEQ TABLET.ER (FP) PO ONE (18:21)
[2023-09-18] MEDS ORDERED: NAPH,MB-DB/K PH,MBDB POWDER PACKET PO SCH (18:45)
[2023-09-18] MEDS ORDERED: NAPH,MB-DB/K PH,MBDB POWDER PACKET PO ONE (21:00)
[2023-09-18] MEDS: ROSUVASTATIN CA 5 MG TABLET PO SCH (22:25)
[2023-09-19] MEDS: MEROPENEM 1 GM in DEXTROSE 5%-WATER 100 ML IVPB SCH ×2 (01:54→10:29)
[2023-09-19] MEDS: ACETAMINOPHEN 325 MG TABLET (FP) PO PRN (06:44)
[2023-09-19 10:17] LABS: HEMATOCRIT 37.9 % (35.4-49); HEMOGLOBIN 12.9 GM/dL (11.7-16.9); MCH 32.1 pg (25.7-33.7); MCHC 34.1 g/dl (32.0-35.9); MEAN CELL VOLUME 94.2 fl (80-96); MEAN PLT VOLUME 6.9 fl (7.5-11.1); PLATELET COUNT 270 10^3/uL (134-434); RBC 4.02 M/mm3 (4.00-5.60); RDW 13.7 % (11.9-15.9); WHITE BLOOD COUNT 6.2 K/mm3 (4.0-10.0)
[2023-09-19 10:29] LABS: POTASSIUM 3.3 mmol/L (3.5-5.1)
[2023-09-19] MEDS: FAMOTIDINE 20 MG TABLET PO SCH (10:29)
[2023-09-19] MEDS: FINASTERIDE 5 MG TABLET (FP) PO SCH (10:29)
[2023-09-19] MEDS: TAMSULOSIN HCL 0.4 MG CAP PO SCH (10:29)
[2023-09-19 10:35] LABS: ALBUMIN 2.8 g/dl (3.4-5.0); BLOOD UREA NITROGEN 7.5 mg/dL (7-18); CALCIUM 8.4 mg/dL (8.5-10.1)
[2023-09-19 10:39] LABS: PHOSPHOROUS 2.7 mg/dL (2.5-4.9)
[2023-09-19 10:40] LABS: BILIRUBIN,TOTAL 0.3 mg/dL (0.2-1); TOT PROT 6.4 g/dl (6.4-8.2)
[2023-09-19] MEDS: POTASSIUM CHLORIDE TABS 20 MEQ TABLET.ER (FP) PO SCH (19:00)
[2023-09-19] MEDS: ROSUVASTATIN CA 5 MG TABLET PO SCH (21:59)
[2023-09-19] MEDS ORDERED: MEROPENEM 1 GM in DEXTROSE 5%-WATER 100 ML IVPB ONE (22:00)
[2023-09-20] MEDS: ACETAMINOPHEN 325 MG TABLET (FP) PO PRN (06:33)
[2023-09-20] MEDS: TAMSULOSIN HCL 0.4 MG CAP PO SCH (08:41)
[2023-09-20] MEDS: FINASTERIDE 5 MG TABLET (FP) PO SCH (09:25)
[2023-09-20] MEDS: POTASSIUM CHLORIDE TABS 20 MEQ TABLET.ER (FP) PO SCH (09:25)
[2023-09-20] MEDS: FAMOTIDINE 20 MG TABLET PO SCH (09:25)
[2023-09-20] MEDS: LOSARTAN POTASSIUM 50 MG TABLET PO SCH (09:28)
[2023-09-20 10:03] LABS: BASO % 0.3 % (0-2.0); EOS % 4.2 % (0-4.5); HEMATOCRIT 35.7 % (35.4-49); LYMPH % 36.6 % (8-40); MCH 31.6 pg (25.7-33.7); MCHC 33.7 g/dl (32.0-35.9); MEAN CELL VOLUME 93.8 fl (80-96); MEAN PLT VOLUME 6.9 fl (7.5-11.1); MONO % 17.3 % (3.8-10.2); NEUT % 41.6 % (42.8-82.8); PLATELET COUNT 295 10^3/uL (134-434); RBC 3.81 M/mm3 (4.00-5.60); WHITE BLOOD COUNT 5.7 K/mm3 (4.0-10.0)
[2023-09-20 10:38] LABS: POTASSIUM 3.7 mmol/L (3.5-5.1)
[2023-09-20 10:40] LABS: ALBUMIN 2.6 g/dl (3.4-5.0); BLOOD UREA NITROGEN 8.1 mg/dL (7-18); CALCIUM 8.9 mg/dL (8.5-10.1)
[2023-09-20 10:43] LABS: CREATININE 0.9 mg/dL (0.55-1.3)
[2023-09-20 10:45] LABS: TOT PROT 6.1 g/dl (6.4-8.2)
[2023-09-20 10:47] LABS: BILIRUBIN,TOTAL 0.3 mg/dL (0.2-1)
[2023-09-20 11:06] LABS: ERYTHROCYTE SEDIMENTATION RATE 30 mm/hr (0-20)
[2023-09-20] MEDS: NITROFURANTOIN MONOHYD/M-CRYST 100 MG CAPSULE PO SCH (21:26)
[2023-09-20] MEDS: ROSUVASTATIN CA 5 MG TABLET PO SCH (21:27)
[2023-09-21 05:36] VITALS: RESP 18
[2023-09-21 10:25] LABS: BASO % 0.7 % (0-2.0); EOS % 6.4 % (0-4.5); HEMATOCRIT 35.6 % (35.4-49); HEMOGLOBIN 12.1 GM/dL (11.7-16.9); LYMPH % 40.4 % (8-40); MCH 31.9 pg (25.7-33.7); MEAN CELL VOLUME 93.7 fl (80-96); MEAN PLT VOLUME 6.8 fl (7.5-11.1); MONO % 17.6 % (3.8-10.2); NEUT % 34.9 % (42.8-82.8); PLATELET COUNT 346 10^3/uL (134-434); RDW 14.3 % (11.9-15.9); WHITE BLOOD COUNT 5.5 K/mm3 (4.0-10.0)
[2023-09-21 10:48] LABS: POTASSIUM 4.1 mmol/L (3.5-5.1)
[2023-09-21] MEDS: FINASTERIDE 5 MG TABLET (FP) PO SCH (10:57)
[2023-09-21] MEDS: TAMSULOSIN HCL 0.4 MG CAP PO SCH (10:57)
[2023-09-21] MEDS: FAMOTIDINE 20 MG TABLET PO SCH (10:57)
[2023-09-21] MEDS: LOSARTAN POTASSIUM 50 MG TABLET PO SCH (10:58)
[2023-09-21] MEDS: NITROFURANTOIN MONOHYD/M-CRYST 100 MG CAPSULE PO SCH ×2 (10:58→21:56)
[2023-09-21 11:00] LABS: BILIRUBIN,TOTAL 0.3 mg/dL (0.2-1); PHOSPHOROUS 2.4 mg/dL (2.5-4.9)
[2023-09-21 11:01] LABS: BLOOD UREA NITROGEN 10.4 mg/dL (7-18); TOT PROT 6.2 g/dl (6.4-8.2)
[2023-09-21 11:02] LABS: ALBUMIN 2.6 g/dl (3.4-5.0)
[2023-09-21 11:03] LABS: CALCIUM 8.5 mg/dL (8.5-10.1); MAGNESIUM 2.1 mg/dL (1.8-2.4)
[2023-09-21 11:04] LABS: CREATININE 0.9 mg/dL (0.55-1.3)
[2023-09-21] MEDS ORDERED: NAPH,MB-DB/K PH,MBDB POWDER PACKET PO ONE (14:24)
[2023-09-21] MEDS: ROSUVASTATIN CA 5 MG TABLET PO SCH (21:55)
[2023-09-22] MEDS: FINASTERIDE 5 MG TABLET (FP) PO SCH (09:12)
[2023-09-22] MEDS: LOSARTAN POTASSIUM 50 MG TABLET PO SCH (09:12)
[2023-09-22] MEDS: FAMOTIDINE 20 MG TABLET PO SCH (09:12)
[2023-09-22] MEDS: TAMSULOSIN HCL 0.4 MG CAP PO SCH (09:12)
[2023-09-22] MEDS: NITROFURANTOIN MONOHYD/M-CRYST 100 MG CAPSULE PO SCH (09:13)
[2023-09-22 10:03] LABS: BASO % 0.6 % (0-2.0); EOS % 5.9 % (0-4.5); HEMATOCRIT 36.3 % (35.4-49); HEMOGLOBIN 12.5 GM/dL (11.7-16.9); LYMPH % 35.2 % (8-40); MCH 32.5 pg (25.7-33.7); MCHC 34.4 g/dl (32.0-35.9); MEAN CELL VOLUME 94.6 fl (80-96); MEAN PLT VOLUME 6.8 fl (7.5-11.1); MONO % 10.4 % (3.8-10.2); NEUT % 47.9 % (42.8-82.8); PLATELET COUNT 402 10^3/uL (134-434); RBC 3.84 M/mm3 (4.00-5.60); RDW 14.1 % (11.9-15.9); WHITE BLOOD COUNT 4.9 K/mm3 (4.0-10.0)
[2023-09-22 10:20] LABS: POTASSIUM 4.3 mmol/L (3.5-5.1)
[2023-09-22 10:23] LABS: CALCIUM 8.8 mg/dL (8.5-10.1)
[2023-09-22 10:24] LABS: ALBUMIN 2.9 g/dl (3.4-5.0); MAGNESIUM 2.2 mg/dL (1.8-2.4)
[2023-09-22 10:27] LABS: PHOSPHOROUS 2.6 mg/dL (2.5-4.9)
[2023-09-22 10:28] LABS: BILIRUBIN,TOTAL 0.8 mg/dL (0.2-1); TOT PROT 6.9 g/dl (6.4-8.2)
[2023-09-22 14:05] VITALS: BP 132/82; PULSE 72; TEMP 98.2
== END 2023-09-22 05:45 | disposition home or self-care (01) | DRG 872 ==
LOC: JER 00:18 → JERBED 05:27 → J6S 16:48
PROVIDERS: ADMIT Internal Medicine; ATTEND Internal Medicine
DX: A41.89 Other specified sepsis (principal); E87.20 Acidosis, unspecified; N39.0 Urinary tract infection, site not specified; E87.1 Hypo-osmolality and hyponatremia; N12 Tubulo-interstitial nephritis, not specified as acute or chronic; I10 Essential (primary) hypertension; N40.0 Benign prostatic hyperplasia without lower urinary tract symptoms; E87.6 Hypokalemia; D72.829 Elevated white blood cell count, unspecified; E78.5 Hyperlipidemia, unspecified; R31.0 Gross hematuria; R33.9 Retention of urine, unspecified; B96.20 Unspecified Escherichia coli [E. coli] as the cause of diseases classified elsewhere; E83.39 Other disorders of phosphorus metabolism
CPT/HCPCS: 0241U-QW; 36415; 70450-TC; 74176-TC; 80048; 80053; 81003; 83605; 83735; 84100; 84484; 85025; 85027; 85651; 86140; 87040; 87086; 87186; 93005; 93010; 99285-25